=== PATIENT | female | born 1940 | race Caucasian/White ===

== ENCOUNTER 2021-08-18 07:40 | Outpatient (RCR) | payer MEDICARE, SELFPAY ==
[2021-08-22 08:13] LABS: Albumin 3.77 g/dL (3.75-5.01); Alpha 1 Globulin 0.26 g/dL (0.19-0.46); Alpha 2 Globulin 0.69 g/dL (0.48-1.05); Immunofixation IFE Done; Immunoglobulin A 87 mg/dL (68-408); Immunoglobulin G 2241 mg/dL (768-1632); Immunoglobulin M 36 mg/dL (35-263); Kappa Qnt Free Light Chains 17.72 mg/L (3.30-19.40); Kappa/Lambda Light Chain Ratio 0.16 (0.26-1.65); Lambda Qnt Free Light Chains 112.32 mg/L (5.71-26.30); Total Protein, Serum 7.3 g/dL (6.3-8.2)
--- NOTE | 2021-08-26 15:35 | ONC.NURNOTE ---
Reviewed with Dr. Lozada and at this time patient to have PET scan in September. Lambda FLC slightly elevated from prior and IgG lower with no signs of kidney damage. Patient informed
== END 2021-09-04 23:59 | disposition home or self-care (01) ==
LOC: CCIC 07:40
PROVIDERS: PCP Physician Assistant Medical; Visit Provider Internal Medicine Hematology & Oncology
DX: C90.00 Multiple myeloma not having achieved remission (principal)
CPT/HCPCS: 36415; 80048; 82784; 83520; 84155; 84165; 85025; 86334

== ENCOUNTER 2021-09-02 14:48 | Outpatient (CLI) | payer MEDICARE, SELFPAY ==
[2021-09-05 06:47] LABS: Kappa-Lambda Qt FLC W/ Ratio 0.17 (0.26-1.65); Lambda Qnt Free Light Chains 117.12 mg/L (5.71-26.30)
== END 2021-09-02 14:49 | disposition home or self-care (01) ==
LOC: LKVLAB 14:48
PROVIDERS: PCP Physician Assistant Medical; Visit Provider Internal Medicine Hematology & Oncology
DX: C90.00 Multiple myeloma not having achieved remission (principal)
CPT/HCPCS: 36415; 83520

== ENCOUNTER 2021-09-02 23:27 | Outpatient (REF) | payer MEDICARE, SELFPAY ==
[2021-09-04 13:23] LABS: Angiotensin Converting Enzyme 26 U/L (16-85)
== END 2021-09-02 23:28 | disposition home or self-care (01) ==
LOC: NPINS 23:27
PROVIDERS: PCP Physician Assistant Medical
DX: C90.00 Multiple myeloma not having achieved remission (principal)
CPT/HCPCS: 82164; 86480

== ENCOUNTER 2021-10-06 14:04 | Outpatient (CLI) | payer MEDICARE, SELFPAY ==
--- NOTE | 2021-10-06 14:00 | CRLHL7_ITS ---
For Patients: As a result of the Century Cures Act, medical imaging exams and procedure reports are released immediately into your electronic medical record. You may view this report before your referring provider. If you have questions, please contact your health care provider. INDICATION: Multiple myeloma TECHNIQUE: Following IV injection of FDG with uptake of 62 minutes, noncontrast CT scan followed by a PET scan were acquired along the length of body from the head to the upper thighs. Noncontrast CT was used for anatomic localization and photon attenuation correction of the PET-CT scan. - Blood glucose level: 117. - FDG dose (mCi): 11.54. COMPARISON: 03/10/2021 PET-CT. FINDINGS: Head/Neck: No abnormal tracer uptake. - Chest: No abnormal tracer uptake. - Background liver parenchyma with SUV mean of 2.8. No abnormal tracer uptake. Resolution of ileocecal valve uptake. - Musculoskeletal: No tracer avid bone lesion. - CT findings: Mild subpleural reticular fibrotic opacities in both lungs are again noted. No focal lung consolidation, pleural effusion or pneumothorax. Gallbladder is absent. Small hiatal hernia. Atrophic pancreatic parenchyma. Duodenal diverticulum. Atherosclerotic abdominal aorta. Colonic diverticulosis. Bones are demineralized. Degenerative changes in the spine. IMPRESSION : No tracer avid bone lesions. Dictated by Junior Jensen MD @ 10/12/2021 2:47:23 PM (Electronically Signed)
== END 2021-10-06 14:05 | disposition home or self-care (01) ==
LOC: RAD 14:05
PROVIDERS: PCP Physician Assistant Medical; Visit Provider Internal Medicine Medical Oncology
DX: C90.00 Multiple myeloma not having achieved remission (principal)
CPT/HCPCS: 78815; A9552

== ENCOUNTER 2022-03-30 08:30 | Outpatient (RCR) | payer MEDICARE, SELFPAY ==
[2021-11-17 14:24] LABS: Eosinophils Percent Auto 3.6 % (0.0-7.0); Hematocrit 30.4 % (33.0-51.0); Hemoglobin* 10.2 gm/dL (12.0-16.0); Immature Granulocytes Abs Auto 0.69 K/uL (0.00-0.30); Lymphocytes Percent Auto 35.1 % (20-44); Mean Corpuscular HGB Conc 34 gm/dL (32-36); Mean Corpuscular Hemoglobin 33 pg (26-34); Mean Corpuscular Volume 98 fL (80-100); Monocytes Percent Auto 6.4 % (0.0-11.0); Neutrophils Percent Auto 35.8 % (42.0-72.0); Platelet Count* 186 K/uL (140-440); RDW Coefficient of Variation % 12.6 % (11.5-15.5); White Blood Count* 3.62 K/uL (4.50-11.00)
[2021-11-17 14:48] LABS: Alkaline Phosphatase* 101 U/L (40-150); Total Protein* 7.7 g/dL (6.0-8.3)
[2021-11-17 14:49] LABS: Alanine Aminotransferase* 20 U/L (4-35); Blood Urea Nitrogen* 16 mg/dL (7-30); Calcium* 8.8 mg/dL (8.4-10.6); Glucose* 120 mg/dL (60-115)
[2021-11-17 14:52] LABS: Creatinine* 0.8 mg/dL (0.5-1.5); Estimated Glomerular Filt Rate 75 ml/min
[2021-11-17 15:14] LABS: Slide Review Reflex Yes
[2021-11-17 15:15] LABS: Slide Review Acceptable Review (Acceptable)
[2021-11-17 15:27] LABS: Aspartate Amino Transferase* 23 U/L (12-35); Bilirubin Total* 0.6 mg/dL (0.1-1.5); Carbon Dioxide* 28 mmol/L (20-32); Chloride* 106 mmol/L (96-114); Potassium* 3.6 mmol/L (3.6-5.1); Sodium* 140 mmol/L (135-149)
[2021-11-19 20:48] LABS: Kappa Qnt Free Light Chains 19.11 mg/L (3.30-19.40); Kappa-Lambda Qt FLC W/ Ratio 0.17 (0.26-1.65); Lambda Qnt Free Light Chains 114.18 mg/L (5.71-26.30)
[2021-12-22 13:45] LABS: Eosinophils Percent Auto 3.8 % (0.0-7.0); Hematocrit 32.5 % (33.0-51.0); Hemoglobin* 10.8 gm/dL (12.0-16.0); Immature Granulocytes Pct Auto 21.2 %; Mean Corpuscular HGB Conc 33 gm/dL (32-36); Mean Corpuscular Hemoglobin 33 pg (26-34); Mean Corpuscular Volume 100 fL (80-100); Monocytes Percent Auto 5.5 % (0.0-11.0); Neutrophils Percent Auto 38.5 % (42.0-72.0); Platelet Count* 203 K/uL (140-440); RDW Coefficient of Variation % 13.6 % (11.5-15.5); Red Blood Count 3.24 m/uL (4.00-5.20); White Blood Count* 3.64 K/uL (4.50-11.00)
[2021-12-22 13:49] LABS: Slide Review Reflex No
[2021-12-22 13:57] LABS: Chloride* 109 mmol/L (96-114); Sodium* 142 mmol/L (135-149)
[2021-12-22 14:00] LABS: Blood Urea Nitrogen* 16 mg/dL (7-30); Carbon Dioxide* 25 mmol/L (20-32); Creatinine* 0.8 mg/dL (0.5-1.5); Estimated Glomerular Filt Rate 75 ml/min; Glucose* 121 mg/dL (60-115)
[2022-01-20 09:41] LABS: Basophils Percent Auto 0.3 % (0.0-3.0); Eosinophils Percent Auto 2.1 % (0.0-7.0); Hematocrit 30.1 % (33.0-51.0); Hemoglobin* 10.3 gm/dL (12.0-16.0); Immature Granulocytes Pct Auto 20.8 %; Lymphocytes Percent Auto 39.2 % (20-44); Mean Corpuscular HGB Conc 34 gm/dL (32-36); Mean Corpuscular Hemoglobin 33 pg (26-34); Mean Corpuscular Volume 98 fL (80-100); Monocytes Percent Auto 8.7 % (0.0-11.0); Neutrophils Percent Auto 28.9 % (42.0-72.0); Platelet Count* 168 K/uL (140-440); RDW Coefficient of Variation % 12.7 % (11.5-15.5); Red Blood Count 3.08 m/uL (4.00-5.20); White Blood Count* 2.88 K/uL (4.50-11.00)
[2022-01-20 09:44] LABS: Slide Review Reflex Yes
[2022-01-20 09:53] LABS: Chloride* 108 mmol/L (96-114); Potassium* 3.7 mmol/L (3.6-5.1); Sodium* 141 mmol/L (135-149)
[2022-01-20 09:55] LABS: Creatinine* 0.8 mg/dL (0.5-1.5); Estimated Glomerular Filt Rate 75 ml/min
[2022-01-20 09:56] LABS: Blood Urea Nitrogen* 17 mg/dL (7-30); Calcium* 9.1 mg/dL (8.4-10.6); Carbon Dioxide* 25 mmol/L (20-32); Glucose* 105 mg/dL (60-115)
[2022-01-20 10:28] LABS: Slide Review Acceptable Review (Acceptable)
[2022-02-20 09:05] LABS: Eosinophils Percent Auto 1.1 % (0.0-7.0); Hematocrit 33.4 % (33.0-51.0); Lymphocytes Percent Auto 33.8 % (20-44); Mean Corpuscular HGB Conc 33 gm/dL (32-36); Mean Corpuscular Hemoglobin 33 pg (26-34); Mean Corpuscular Volume 100 fL (80-100); Monocytes Percent Auto 6.4 % (0.0-11.0); Neutrophils Percent Auto 58.7 % (42.0-72.0); Platelet Count* 168 K/uL (140-440); RDW Coefficient of Variation % 13.1 % (11.5-15.5); Red Blood Count 3.35 m/uL (4.00-5.20); White Blood Count* 3.58 K/uL (4.50-11.00)
[2022-02-20 09:06] LABS: Slide Review Reflex No
[2022-02-20 09:22] LABS: Chloride* 110 mmol/L (96-114); Potassium* 4.3 mmol/L (3.6-5.1); Sodium* 141 mmol/L (135-149)
[2022-02-20 09:24] LABS: Cholesterol* 161 mg/dL (90-199); Creatinine* 0.8 mg/dL (0.5-1.5); Estimated Glomerular Filt Rate 75 ml/min
[2022-02-20 09:25] LABS: Blood Urea Nitrogen* 14 mg/dL (7-30); Calcium* 8.9 mg/dL (8.4-10.6); Carbon Dioxide* 29 mmol/L (20-32); Glucose* 117 mg/dL (60-115); HDL Cholesterol* 56 mg/dL (>=50); LDL Cholesterol Calculated 87 mg/dL (<100); Triglycerides* 88 mg/dL (40-149)
--- NOTE | 2022-03-06 09:29 | ONC.NURNOTE ---
Patient here for lab redraw of myeloma labs no follow up appts scheduled plan discussed with patient Will have Dr Zaidi review labs next week- next appt pending lab review by Dr Zaidi
[2022-03-08 23:23] LABS: Albumin 3.69 g/dL (3.75-5.01); Alpha 1 Globulin 0.33 g/dL (0.19-0.46); Alpha 2 Globulin 0.77 g/dL (0.48-1.05); Immunofixation IFE Done; Immunoglobulin A 102 mg/dL (68-408); Immunoglobulin G 2618 mg/dL (768-1632); Immunoglobulin M 45 mg/dL (35-263); Kappa Qnt Free Light Chains 23.08 mg/L (3.30-19.40); Kappa/Lambda Light Chain Ratio 0.18 (0.26-1.65); Lambda Qnt Free Light Chains 125.83 mg/L (5.71-26.30); Monoclonal Protein 1.91 g/dL; Total Protein, Serum 7.6 g/dL (6.3-8.2)
--- NOTE | 2022-03-23 13:00 | ONC.NURNOTE ---
patient called for lab results numbers reviewed due for follow up with Dr Zaidi appt set for next week patient does not have a car- patient will work on transportation this week
== END 2022-04-11 23:59 | disposition home or self-care (01) ==
LOC: CCIC 08:30
PROVIDERS: Clinical Nurse Specialist; Nurse Practitioner Family; PCP Physician Assistant Medical; Referring Provider Physician Assistant Medical; Visit Provider Internal Medicine Hematology & Oncology
DX: D47.2 Monoclonal gammopathy (principal)
CPT/HCPCS: 36415; 80048; 80053; 80061; 82784; 83520; 84155; 84165; 85025; 86334; 99212; 99213; 99214; 99443

== ENCOUNTER 2022-04-19 13:39 | Outpatient (CLI) | payer MEDICARE, SELFPAY | END 2022-04-19 13:40 | disposition home or self-care (01) | LOC: NFLDREF 04-21 01:31 | PROVIDERS: PCP Physician Assistant Medical; Referring Provider Physician Assistant Medical; Visit Provider Physician Assistant Medical | DX: C90.00 Multiple myeloma not having achieved remission (principal) | CPT/HCPCS: 80048 ==

== ENCOUNTER 2022-06-19 11:05 | Outpatient (CLI) | payer MEDICARE, SELFPAY | END 2022-06-19 11:06 | disposition home or self-care (01) | PROVIDERS: PCP Physician Assistant Medical; Visit Provider Physician Assistant Medical | DX: Z00.00 Encounter for general adult medical examination without abnormal findings (principal); R73.03 Prediabetes; E78.00 Pure hypercholesterolemia, unspecified; I10 Essential (primary) hypertension; C90.00 Multiple myeloma not having achieved remission; D47.2 Monoclonal gammopathy; Q24.9 Congenital malformation of heart, unspecified; Z13.6 Encounter for screening for cardiovascular disorders | CPT/HCPCS: 80053; 80061; 82784; 83520; 84155; 84165; 85025; 86334 ==

== ENCOUNTER 2022-07-06 07:05 | Outpatient (CLI) | payer MEDICARE, SELFPAY ==
[2022-07-06 07:18] VITALS: BP 132/89; PULSE 71; RESP 20; O2SAT 99
[2022-07-06 07:22] VITALS: BP 126/70; PULSE 74; RESP 20; TEMP 36.7; O2SAT 100; BMI 28.0
--- NOTE | 2022-07-06 08:15 | W.ANESCHARGE ---
Anesthesia Charges Start Date/Time Anesthesia Start Date: 07/06/22 Anesthesia Start Time: 08:10 Stop Date/Time Anesthesia Stop Date: 07/06/22 Anesthesia Stop Time: 08:30 Summary Extremes of Age - Over 70 or under 1: MDA
[2022-07-06 08:25] LABS: Hematocrit 31.6 % (33.0-51.0); Hemoglobin* 10.5 gm/dL (12.0-16.0); Immature Granulocytes Pct Auto 20.5 %; Immature Reticulocyte Fraction 5.5 % (3.0-15.9); Lymphocytes Percent Auto 26.6 % (20-44); Mean Corpuscular HGB Conc 33 gm/dL (32-36); Mean Corpuscular Hemoglobin 33 pg (26-34); Mean Corpuscular Volume 100 fL (80-100); Monocytes Percent Auto 8.8 % (0.0-11.0); Neutrophils Percent Auto 43.1 % (42.0-72.0); Platelet Count* 200 K/uL (140-440); RDW Coefficient of Variation % 13.7 % (11.5-15.5); Red Blood Count 3.16 m/uL (4.00-5.20); Reticulocyte Hemoglobin Equivi 33.5 pg (29.0-35.0); Reticulocyte Percent 1.1 % (0.5-2.0); Reticulocytes Absolute 0.04 # (0.03-0.08)
[2022-07-06 08:31] VITALS: BP 113/68; PULSE 67; RESP 18; O2SAT 99
--- NOTE | 2022-07-06 08:33 | W.ANESCHARGE ---
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
[2022-07-06 08:50] LABS: Albumin* 3.9 g/dL (3.3-5.0); Chloride* 107 mmol/L (96-114)
[2022-07-06 08:51] LABS: Potassium* 3.8 mmol/L (3.6-5.1); Sodium* 140 mmol/L (135-149)
[2022-07-06 08:53] LABS: Aspartate Amino Transferase* 29 U/L (12-35); Bilirubin Total* 0.9 mg/dL (0.1-1.5); Carbon Dioxide* 26 mmol/L (20-32); Est. Creatinine Clearance* 40.38; Estimated Glomerular Filt Rate 57 ml/min; Total Protein* 7.8 g/dL (6.0-8.3)
[2022-07-06 08:54] LABS: Alanine Aminotransferase* 28 U/L (4-35); Alkaline Phosphatase* 91 U/L (40-150); Blood Urea Nitrogen* 27 mg/dL (7-30); Glucose* 106 mg/dL (60-115)
[2022-07-06 08:56] VITALS: BP 119/62; PULSE 72; RESP 18; O2SAT 100
[2022-07-06 08:56] LABS: Slide Review Reflex No
== END 2022-07-06 09:21 | disposition home or self-care (01) ==
LOC: OP CLINIC 07:05
PROVIDERS: Clinical Nurse Specialist; PCP Physician Assistant Medical; Visit Provider Internal Medicine Hematology & Oncology
DX: C90.00 Multiple myeloma not having achieved remission (principal); D47.2 Monoclonal gammopathy
CPT/HCPCS: 01112; 36415; 38222; 80053; 85025; 85045; 88184; 88185; 88237; 88264; 88305; 88311; 88313; 88360; 99100; J1644; J2001; J2704

== ENCOUNTER 2022-07-13 12:24 | Outpatient (CLI) | payer MEDICARE, SELFPAY ==
--- NOTE | 2022-07-13 12:45 | CRLHL7_ITS ---
For Patients: As a result of the 21st Century Cures Act, medical imaging exams and procedure reports are released immediately into your electronic medical record. You may view this report before your referring provider. If you have questions, please contact your health care provider. INDICATION: Multiple myeloma TECHNIQUE: Following IV injection of FDG with uptake of 64 minutes, noncontrast CT scan followed by a PET scan were acquired along the length of body from the head to the upper thighs. Noncontrast CT was used for anatomic localization and photon attenuation correction of the PET-CT scan. - Blood glucose level: 109. - FDG dose (mCi): 12.22. COMPARISON: PET-CT dated 10/06/2021. FINDINGS: Head/Neck: No abnormal radiotracer uptake. - Chest: Background mediastinal blood pool with SUV mean of 2.9. No abnormal radiotracer uptake. - Background liver parenchyma with SUV mean of 3.2. No abnormal radiotracer uptake. - Musculoskeletal: No abnormal radiotracer uptake. Increased linear radiotracer uptake within the right iliac wing (image 245) with SUV max measuring 3.2. Possible underline biopsy tract. - CT findings: No acute incidental finding on non contrast, nondiagnostic CT IMPRESSION : 1. No definite evidence of metabolically active disease. 2. Mild to moderate linear oriented increased radiotracer uptake within the right iliac wing. Correlate with interval bone marrow biopsy. Dictated by Chevy Elizabeth MD @ 07/25/2022 4:41:28 PM (Electronically Signed)
== END 2022-07-13 12:25 | disposition home or self-care (01) ==
LOC: RAD 12:25
PROVIDERS: PCP Physician Assistant Medical; Visit Provider Internal Medicine Hematology & Oncology
DX: C90.00 Multiple myeloma not having achieved remission (principal)
CPT/HCPCS: 78816; A9552

== ENCOUNTER 2022-07-27 14:59 | Outpatient (RCR) | payer MEDICARE, SELFPAY ==
--- NOTE | 2022-04-14 13:50 | ONC.NURNOTE ---
Addendum entered by Yana Willis RN 04/14/22 14:15: Patient called back and was concerned about having to get a ride to [place] every month so let patient know she could have those labs done at her [place] clinic and just get her MM labs every 3 months at the hospital Original Note: Patient called and message left for her to come in for monthly blood draws instead of every [address] Zaidi.
--- NOTE | 2022-05-23 10:02 | ONC.NURNOTE ---
Consuelo called about her next lab draw due She would like to go to [place] orders will be placed due to current illness- weakness/fatigue/low appetite reports to being in bed X 4 days- today she is seeing improvement drinking fluids well recommended PCP follow up for this reason it was recommended that she wait on her blood draw until she is recovered- 1-2 weeks
[2022-07-01 22:03] LABS: Prothrombin Time 12.8 sec (12.0-15.5); dRVVT Screen 27 sec (33-44)
--- NOTE | 2022-07-12 10:34 | PC.NURSE ---
Addendum entered by Lori Pardo RN 07/12/22 16:16: Called PET scan scheduling this afternoon and confirmed that pt was able to get transportation for PET scan tomorrow so the test will be done. Pt will see Dr. Andre on 07/27/2022 as scheduled. Original Note: Received a call from Dhara at [facility] with an update re: pt's PET scan scheduling. Dhara was able to get a time for tomorrow, 07/13/2022 and when she called pt to discuss, Consuelo shared that she wouldn't be able to get a ride. The next PET scan opening is 07/27/2022 and pt is currently scheduled to see Dr. Andre on that same day. PET scans aren't usually read same day so this may be an issue. 's next opening is several weeks later. RN called and LM with Consuelo with this information and invited pt to call back with any ride updates.
== END 2022-12-26 23:59 | disposition home or self-care (01) ==
LOC: CCIC 14:59
PROVIDERS: Internal Medicine Hematology & Oncology; PCP Physician Assistant Medical; Referring Provider Physician Assistant Medical; Visit Provider Internal Medicine Hematology & Oncology
DX: C90.00 Multiple myeloma not having achieved remission (principal); R78.89 Finding of other specified substances, not normally found in blood
CPT/HCPCS: 36415; 85610; 85613; 85730; 99212; 99213; 99214

== ENCOUNTER 2022-10-26 11:21 | Outpatient (CLI) | payer MEDICARE, SELFPAY | END 2022-10-26 11:22 | disposition home or self-care (01) | PROVIDERS: PCP Physician Assistant Medical; Visit Provider Physician Assistant Medical | DX: Z01.818 Encounter for other preprocedural examination (principal); E78.00 Pure hypercholesterolemia, unspecified; I10 Essential (primary) hypertension; R73.03 Prediabetes; Z79.899 Other long term (current) drug therapy | CPT/HCPCS: 82306; 82607; 84443 ==

== ENCOUNTER 2022-12-14 11:36 | Outpatient (CLI) | payer MEDICARE, SELFPAY | END 2022-12-14 11:37 | disposition home or self-care (01) | LOC: NFLDREF 12-18 09:51 | PROVIDERS: PCP Physician Assistant Medical; Referring Provider Physician Assistant Medical; Visit Provider Internal Medicine Hematology & Oncology | DX: C90.00 Multiple myeloma not having achieved remission (principal) | CPT/HCPCS: 80048; 82784; 83520; 84155; 84165; 86334 ==

== ENCOUNTER 2022-12-14 12:42 | Outpatient (CLI) | payer MEDICARE, SELFPAY ==
--- NOTE | 2022-12-14 13:00 | CRLHL7_ITS ---
For Patients: As a result of the Century Cures Act, medical imaging exams and procedure reports are released immediately into your electronic medical record. You may view this report before your referring provider. If you have questions, please contact your health care provider. DXA BONE MINERAL DENSITY STUDY Reason for exam: Encounter for screening for osteoporosis. Current height (in): 65.0. Weight (lb): 150.0. Menopause age: 54. Ethnicity: White. 1. Have you had a previous hip or vertebral fracture? No. 2. Have you had any fractures during your adult life which did not result from significant trauma (e.g., auto accident)? No. 3. Did either of your parents have a hip fracture? No. 4. Do you smoke? No. 5. Have you ever taken Glucocorticoids? No. 6. Do you have rheumatoid arthritis? No. 7. Do you have secondary osteoporosis? No. 8. Do you drink 3 or more alcoholic drinks per day? No. 9. Are you being treated for osteoporosis? No. 10. Have you ever taken any of the following medications: Actonel, Evista, Fosamax, Miacalcin, Reclast, Boniva, Forteo, HRT (i.e. estrogen/hormone therapy), Protelos, Prolia, Vitamin D, Calcium, other ??? please specify. ANSWER: Yes, vitamin D, calcium. 11. Do you have any of the following medical conditions: Anorexia or bulimia, asthma or emphysema, end stage renal disease, hyperparathyroidism, any seizure disorders, cancer, inflammatory bowel diseases, hysterectomy, other ??? please specify. ANSWER: Yes, Cancer- multiple myeloma. 12. What was your maximum height (inches)? 65. 13. Do you perform weight bearing exercise regularly? No. 14. Do you regularly consume dairy products? No. 15. Do you drink caffeinated beverages? Yes. 16. At what age did your period start? 14. 17. Are you premenopausal? No. 18. How many full term pregnancies have you had? 2. 19. Have you ever missed your period for more than 6 months in a row (not including or menopause)? No. TECHNIQUE: Bone mineral density study was performed using the [employer]. FINDINGS: The results of the study expressed as bone mineral density (BMD) are as follows: Lumbar spine L2 to L4: BMD: 1.013 g/cm2. T-score: -0.6. Z-score: 2.2. Neck Left: BMD: 0.677 g/cm2. T-score: -1.5. Z-score: 0.8. Right: BMD: 0.636 g/cm2. T-score: -1.9. Z-score: 0.4. Total Left: BMD: 0.835 g/cm2. T-score: -0.9. Z-score: 1.2. Right: BMD: 0.760 g/cm2. T-score: -1.5. Z-score: 0.6. IMPRESSION: Osteopenia. *Comparison exams done prior to 07/2019 were performed on different unit, [employer]. FRAX 10-year Fracture Risk Major Osteoporotic Fracture: 16 percent Hip Fracture: 4.5 percent Reported Risk Factors: [place] () Neck BMD=0.636, BMI=25.0 Junior Jacome M.D. Diagnostic Radiologist [email or web address] DSM/[place]ina PT/Dictated by: Junior Jacome MD @ 12/15/2022 12:34:00 PM (Electronically Signed)
== END 2022-12-14 12:43 | disposition home or self-care (01) ==
PROVIDERS: PCP Physician Assistant Medical; Visit Provider Physician Assistant Medical
DX: Z13.820 Encounter for screening for osteoporosis (principal); M85.89 Other specified disorders of bone density and structure, multiple sites; Z78.0 Asymptomatic menopausal state
CPT/HCPCS: 77080

== ENCOUNTER 2023-01-08 14:05 | Outpatient (RCR) | payer MEDICARE, SELFPAY ==
[2023-01-08 15:11] LABS: Eosinophils Percent Auto 1.9 % (0.0-7.0); Hematocrit 33.7 % (33.0-51.0); Hemoglobin* 11.1 gm/dL (12.0-16.0); Immature Granulocytes Pct Auto 12.8 %; Lymphocytes Percent Auto 31.7 % (20-44); Mean Corpuscular HGB Conc 33 gm/dL (32-36); Mean Corpuscular Hemoglobin 32 pg (26-34); Mean Corpuscular Volume 98 fL (80-100); Monocytes Percent Auto 8.5 % (0.0-11.0); Neutrophils Percent Auto 45.1 % (42.0-72.0); Platelet Count* 202 K/uL (140-440); RDW Coefficient of Variation % 13.1 % (11.5-15.5); Red Blood Count 3.45 m/uL (4.00-5.20); White Blood Count* 3.75 K/uL (4.50-11.00)
[2023-01-08 16:23] LABS: Slide Review Acceptable Review (Acceptable); Slide Review Reflex Yes
== END 2023-07-07 23:59 | disposition home or self-care (01) ==
LOC: CCIC 14:05
PROVIDERS: PCP Physician Assistant Medical; Referring Provider Physician Assistant Medical; Visit Provider Internal Medicine Hematology & Oncology
DX: C90.00 Multiple myeloma not having achieved remission (principal); D70.9 Neutropenia, unspecified
CPT/HCPCS: 36415; 85025; 99212; 99213; 99214

== ENCOUNTER 2023-07-09 11:30 | Outpatient (CLI) | payer MEDICARE, SELFPAY | END 2023-07-09 11:31 | disposition home or self-care (01) | LOC: NFLDREF 07-26 11:44 | PROVIDERS: PCP Physician Assistant Medical; Referring Provider Physician Assistant Medical; Visit Provider Internal Medicine Hematology & Oncology | DX: C90.00 Multiple myeloma not having achieved remission (principal) | CPT/HCPCS: 80053; 80061; 82784; 83520; 83615; 84155; 84165; 86334 ==

== ENCOUNTER 2023-11-12 10:00 | Outpatient (RCR) | payer MEDICARE, SELFPAY ==
[2023-11-02 15:21] LABS: Basophils Percent Auto 0.4 % (0.0-3.0); Eosinophils Percent Auto 1.9 % (0.0-7.0); Hematocrit 27.2 % (33.0-51.0); Hemoglobin* 8.7 gm/dL (12.0-16.0); Immature Granulocytes Pct Auto 13.7 %; Mean Corpuscular HGB Conc 32 gm/dL (32-36); Mean Corpuscular Hemoglobin 34 pg (26-34); Mean Corpuscular Volume 107 fL (80-100); Monocytes Percent Auto 6.7 % (0.0-11.0); Neutrophils Percent Auto 40.3 % (42.0-72.0); Platelet Count* 156 K/uL (140-440); RDW Coefficient of Variation % 16.2 % (11.5-15.5); Red Blood Count 2.55 m/uL (4.00-5.20)
[2023-11-02 15:31] LABS: Slide Review Reflex No
[2023-11-02 15:34] LABS: Albumin* 3.8 g/dL (3.3-5.0); Chloride* 111 mmol/L (96-114); Potassium* 3.5 mmol/L (3.6-5.1); Sodium* 140 mmol/L (135-149)
[2023-11-02 15:37] LABS: Alanine Aminotransferase* 17 U/L (4-35); Alkaline Phosphatase* 81 U/L (40-150); Anion Gap 6 mEq/L (7-15); Aspartate Amino Transferase* 28 U/L (12-35); Bilirubin Total* 1.4 mg/dL (0.1-1.5); Blood Urea Nitrogen* 14 mg/dL (7-30); Calcium* 9.1 mg/dL (8.4-10.6); Carbon Dioxide* 23 mmol/L (20-32); Creatinine* 0.8 mg/dL (0.5-1.5); Estimated Glomerular Filt Rate 74 ml/min; Glucose* 108 mg/dL (60-115); Lactate Dehydrogenase* 227 U/L (120-246); Total Protein* 7.5 g/dL (6.0-8.3)
[2023-11-05 19:34] LABS: Albumin 3.57 g/dL (3.75-5.01); Alpha 1 Globulin 0.28 g/dL (0.19-0.46); Alpha 2 Globulin 0.65 g/dL (0.48-1.05); Immunofixation IFE Done; Immunoglobulin A 104 mg/dL (68-408); Immunoglobulin G 2145 mg/dL (768-1632); Immunoglobulin M 52 mg/dL (35-263); Kappa Qnt Free Light Chains 19.87 mg/L (3.30-19.40); Kappa/Lambda Light Chain Ratio 0.17 (0.26-1.65); Lambda Qnt Free Light Chains 116.25 mg/L (5.71-26.30); Monoclonal Protein 1.68 g/dL (<=0.00); Total Protein, Serum 7.1 g/dL (6.3-8.2)
[2023-11-12 11:00] LABS: Basophils Percent Auto 0.4 % (0.0-3.0); Eosinophils Percent Auto 0.8 % (0.0-7.0); Hematocrit 27.7 % (33.0-51.0); Hemoglobin* 8.8 gm/dL (12.0-16.0); Immature Granulocytes Pct Auto 16.7 %; Lymphocytes Percent Auto 28.3 % (20-44); Mean Corpuscular HGB Conc 32 gm/dL (32-36); Mean Corpuscular Hemoglobin 34 pg (26-34); Mean Corpuscular Volume 108 fL (80-100); Neutrophils Percent Auto 47.8 % (42.0-72.0); Platelet Count* 151 K/uL (140-440); RDW Coefficient of Variation % 15.8 % (11.5-15.5); Red Blood Count 2.57 m/uL (4.00-5.20); White Blood Count* 2.51 K/uL (4.50-11.00)
[2023-11-12 11:01] LABS: Slide Review Reflex No
[2023-11-12 11:21] LABS: Iron* 94 ug/dL (37-170)
[2023-11-12 11:30] LABS: Percent Iron Saturation 43 % (20-50); Total Iron Binding Capacity 219 ug/dL (265-497)
[2023-11-12 11:46] LABS: Ferritin* 94.7 ng/mL (11.1-264.0)
[2023-11-12 12:00] LABS: Vitamin B12* 659 pg/mL (243-894)
[2023-11-13 14:44] LABS: Folate, Serum 15.6 ng/mL (>=5.9)
--- NOTE | 2023-11-30 14:57 | PC.NURSE ---
Addendum entered by Liz Fontenot RN 12/04/23 15:51: Per Dr. Andre, pt needs to have her hemoglobin rechecked. Dr. Andre did not order the oral Iron for pt and doesn't think she needs it so can not advise her on the following concerns. Pt called back and typewriter aligner discussed with pt Dr. Andre recommendation. Pt will call [facility] for lab appt to recheck hemoglobin. Pt instructed to call [facility] when lab is drawn so we can discuss results with Dr. Andre. Pt verbalized understanding of plan of care. Original Note: Pt called today to report that the iron gummies she is taking are very unpleasant. She would like to review other oral iron options and maybe even something stronger whether pill or IV. Pt is receiving home care services and the care provider in her home encouraged her to call Dr. Andre to discuss. MD not present in clinic today. Will have MD review next week and follow-up with Ana. Supportive listening provided.
== END 2024-01-19 23:59 | disposition home or self-care (01) ==
LOC: CCIC 10:00
PROVIDERS: PCP Physician Assistant Medical; Visit Provider Internal Medicine Hematology & Oncology
DX: C90.00 Multiple myeloma not having achieved remission (principal); D47.2 Monoclonal gammopathy; Z86.79 Personal history of other diseases of the circulatory system; D70.8 Other neutropenia; R23.1 Pallor
CPT/HCPCS: 36415; 80053; 82607; 82728; 82746; 82784; 83520; 83540; 83550; 83615; 84155; 84165; 85025; 86334; 99214; 99441; 99442; G0463

== ENCOUNTER 2024-01-10 10:27 | Outpatient (CLI) | payer MEDICARE, SELFPAY ==
--- OUTSIDE RECORDS SUMMARY | 2024-01-10 10:32 | XMS_ITS | Referral Summary ---
Author Organization [place] Address Replaced by [facility] [place] [address] Care Team Providers Care Wax Pattern Repairer Name Role Phone Clinic, [facility] Primary Care Provider Arvin Fernandez PA-C Unavailable [phone] Encounters Date Type Department Care Team Description 10/30/[address] [address] Ebony Patel DO Home Care/Hospice 10/24/2023 Travel 10/24/2023 9:30 AM CDT Transitional Care Unit Visit [address] [address] Carlee Lemons PA-C Fall, subsequent encounter (Primary Dx); Type 2 diabetes mellitus without complication, without long-term current use of insulin (H); Essential hypertension 10/17/2023 Travel 10/17/2023 10:00 AM CDT Discharge Summary [facility] [address] [address] Carlee Lemons PA-C Discharge Summary [facility] 10/12/2023 9:00 AM CDT Transitional Care Unit Visit [address] [phone] Ebony Patel DO Fall, subsequent encounter (Primary Dx); Intraventricular hemorrhage (H); Physical deconditioning; Multiple myeloma, remission status unspecified (H); Anemia, unspecified type; Chronic kidney disease, stage 3a (H); Essential hypertension; Type 2 diabetes mellitus without complication, without long-term current use of insulin (H); Cognitive impairment; Post herpetic neuralgia 10/11/2023 Travel 10/11/2023 11:30 AM CDT Office Visit [facility] [place] [phone] [facility] [address] [place] [address] Arvin Fernandez PA-C IVH (intraventricular hemorrhage) (H) (Primary Dx) from Last 3 Months Allergies Active Allergy Reactions Criticality Noted Date Comments Codeine Other (See Comments) 10/07/2017 Hypotension Medications atorvastatin (LIPITOR) 40 MG tablet Take 40 mg by mouth every evening. Active losartan (COZAAR) 100 MG tablet Take 100 mg by mouth daily Active metoprolol succinate ER (TOPROL XL) 50 MG 24 hr tablet Take 50 mg by mouth daily Active vitamin B-2 (RIBOFLAVIN) 100 MG TABS tablet Take 25 mg by mouth daily Active Elemental iron 65 mg Vitamin C 125 mg (VITRON C) 65-125 MG TABS tablet Take 1 tablet by mouth daily Active multivitamin, therapeutic (THERA-VIT) TABS tablet Take 1 tablet by mouth daily Active acetaminophen (TYLENOL) 325 MG tabletIndicatio ns:ADRIAN (acute kidney injury) (H) Take 2 tablets (650 mg) by mouth every 4 hours as needed for mild pain or other (and adjunct with moderate or severe pain or per patient request) 4 Active ondansetron (ZOFRAN ODT) 4 MG ODT tabIndications: ADRIAN (acute kidney injury) (H) Take 1 tablet (4 mg) by mouth every 6 hours as needed for nausea or vomiting 4 Active senna-docusate (SENOKOT-S/WANDY COLACE) 8.6-50 MG tabletIndicatio ns:ADRIAN (acute kidney injury) (H) Take 1 tablet by mouth 2 times daily as needed for constipation 4 Active SUMAtriptan (IMITREX) 50 MG tabletIndicatio ns:ADRIAN (acute kidney injury) (H) Take 1 tablet (50 mg) by mouth 2 times daily as needed for migraine 4 Active meclizine (ANTIVERT) 25 MG tabletIndicatio ns:Vertigo Take 1 tablet (25 mg) by mouth 3 times daily as needed for dizziness 4 Active traZODone (DESYREL) 50 MG tabletIndicatio ns:Insomnia, unspecified type Take 1 tablet (50 mg) by mouth at bedtime 4 Active Lidocaine (LIDOCARE) 4 % PatchIndication s:Post herpetic neuralgia Place 2 patches over 12 hours onto the skin every 24 hours. To prevent lidocaine toxicity, patient should be patch free for 12 hrs daily. 4 Active potassium chloride (KLOR-CON) 20 MEQ packet Take 40 mEq by mouth daily. Active Active Problems Problem Noted Date Diagnosed Date Cognitive impairment 10/11/2023 Type 2 diabetes mellitus wit hout complication, without long-term current use of insulin 10/11/2023 Anemia, unspecified type 10/11/2023 Chronic kidney disease, stage 3a 10/11/2023 Essential hypertension 10/11/2023 Vertigo 09/21/2023 ADRIAN (acute kidney injury) 09/07/2023 Immunizations Name Administration Dates Next Due COVID-19 Monovalent 18+ (Moderna) 05/01/2020, Influenza Vaccine 65+ (Fluzone HD) 11/01,11/09/2021,11/10/2020,2019 Pneumo Conj 13-V (2010&after) 03/02/2016 Pneumococcal 23 valent 10/16/2017 TDAP (Adacel,Boostrix) 09/12/2019 Zoster recombinant adjuvante d (SHINGRIX) 06/12/2018,10/16/2017 Zoster vaccine, live 05/18/2011 Social History Tobacco Use Types Packs/Day Years Used Date Smoking Tobacco: Never Smokeless Tobacco: Never Tobacco Cessation:Counseling Given: Not Answered Alcohol Use Standard Drinks/Week Comments No 0 (1 standard drink = 0.6 oz pur e alcohol) PHQ-2 Answer Date Recorded PHQ-2 Score 0 10/11/2023 Adolescent Education Answer Date Record ed Getting School Help Needed Not on file 09/06 Comments No Sex and Gender Information Value Date Recorded Sex Assigned at Not on file Legal Sex Female 8:48 AM CDT Gender Identity Not on file Sexual Orientation Not on file Last Filed Vital Signs Vital Sign Reading Time Taken Comments Blood Pressure 107/80 10/24/2023 7:42 AM CDT Pulse 73 10/24/2023 7:42 AM CDT Temperature 36.3 C (97.3 F) 10/24/2023 7:42 AM CDT Respiratory Rate 18 10/24/2023 7:42 AM CDT Oxygen Saturation 97% 10/24/2023 7:42 AM CDT Inhaled Oxygen Concentration - - Weight 67.8 kg (149 lb 6.4 oz) 10/24/2023 7:42 A M CDT Height 165.1 cm (5' 5) 10/24/2023 7:42 AM CDT Body Mass Index 24.86 10/24/2023 7:42 AM CDT Plan of Treatment Not on file Procedures Procedure Name Priority Date/Time Associated Diagnosis Comments HEMOGLOBIN A1C Routine 09/26/2023 5:00 AM CDT Repeated falls BASIC METABOLIC PANEL Routine 09/24/2023 5:53 AM CDT ROUTINE UA WITH MICROSCOPIC STAT 09/20/2023 7:29 PM CDT CBC WITH PLATELETS AND DIFFERENTIAL STAT 09/20/2023 3:56 PM CDT LIPID PANEL (EXTERNAL RESULT) Routine 07/09/2023 11:30 AM CDT from Last 3 Months or Most Recently Relevant to Health Maintenance Results * (ABNORMAL) Hemoglobin A1c (09/26/2023 5:00 AM CDT) Hemoglobin A1C 5.7(H) <5.7 % 09/26/2023 12:20 PM CDT [facility] Comment: Normal <5.7% Prediabetes 5.7-6.4% Diabetes 6.5% or higher Note: Adopted from ADA consensus guidelines. Blood STRUCTURE OF LEFT UPPER LIMB / Unknown Venipuncture / Unknown 09/26/2023 5:00 AM CDT 09/26/2023 8:06 AM CDT Carlee Lemons PA-C LAB - BLOOD ORDERABLES F inal Result [facility] [address] [facility] [address] [facility], [address] [place] [address], [facility] * (ABNORMAL) Basic metabolic panel (09/24/2023 5:53 AM CDT) Sodium 141 135 - 145 mmol/L 09/24/2023 6:37 AM CDT [facility] Potassium 4.1 3.4 - 5.3 mmol/L 09/24/2023 6:37 AM CDT [facility] Chloride 106 98 - 107 mmol/L 09/24/2023 6:37 AM CDT [facility] Carbon Dioxide (CO2) 22 22 - 29 mmol/L 09/24/2023 6:37 AM CDT [facility] Anion Gap 13 7 - 15 mmol/L 09/24/2023 6:37 AM CDT [facility] Urea Nitrogen 13.3 8.0 - 23.0 mg/dL 09/24/2023 6:37 AM CDT [facility] Creatinine 0.86 0.51 - 0.95 mg/dL 09/24/2023 6:37 AM CDT [facility] GFR Estimate 67 >60 mL/min/1.7 3m2 09/24/2023 6:37 AM CDT [facility] Comment:eGFR calculated us2020 CKD-EPI equation. Calcium 8.8 8.8 - 10.4 mg/dL 09/24/2023 6:37 AM CDT [facility] Comment:Reference intervals for this test were updated on 08/21/2023 to reflect our healthy population more accurately. There may be differences in the flagging of prior results with similar values performed with this method. Those prior results can be interpreted in the context of the updated reference intervals. Glucose 112(H) 70 - 99 mg/dL 09/24/2023 6:37 AM CDT [facility] Blood STRUCTURE OF LEFT HAND / Unknown Venipuncture / Unknown 09/24/2023 5:53 AM CDT 09/24/2023 6:11 AM CDT Lawrence Olivares APRN LIGHTNING ROD INSTALLER LAB - BLOOD ORDERABLE S Final Result LABORATORY [facility] [address] [facility] Lab (1st floor, no room number) [place] [address], [facility] * (ABNORMAL) UA with Microscopic (09/20/2023 7:29 PM CDT) Color Urine Light Yellow Colorless, Straw, Light Yellow, Yellow 09/20/2023 8:02 PM CDT LABORATORY Appearance Urine Clear Clear 09/20/19 24 8:02 PM CDT LABORATORY Glucose Urine Negative Negative mg/dL 09/20/2023 8:02 PM CDT LABORATORY Bilirubin Urine Negative Negative 8:02 PM CDT LABORATORY Ketones Urine Trace(A) Negative mg/dL 09/20/2023 8:02 PM CDT LABORATORY Specific [place] Urine 1.012 1.003 - 1.035 09/20/2023 8:02 PM CDT LABORATORY Blood Urine Negative Negative 09/20/2023 8:02 PM CDT LABORATORY pH Urine 6.5 5.0 - 7.0 09/20/2023 8:02 PM CDT LABORATORY Protein Albumin Urine Negative Negative mg/dL 09/20/2023 8:02 PM CDT LABORATORY Urobilinogen Urine Normal Normal, 2.0 mg/dL 09/20/2023 8:02 PM CDT LABORATORY Nitrite Urine Negative Negative 09/20/2023 8:02 PM CDT LABORATORY Leukocyte Esterase Urine Negative Negative 09/20/2023 8:02 PM CDT LABORATORY Bacteria Urine Few(A) None Seen /HPF 09/20/2023 8:02 PM CDT [facility]ORATORY Comment:Urine microscopic re viewed. RBC Urine 1 <=2 /HPF 09/20/2023 8:02 PM CDT LABORATORY WBC Urine 2 <=5 /HPF 09/20/2023 8:02 PM CDT LABORATORY Hyaline Casts Urine 1 <=2 /LPF 09/20/2023 8:02 PM CDT LABORATORY Urine URINE SPECIMEN FROM URINARY CONDUIT / Unknown Non-blood Collection / Unknown 09/20/2023 7:29 PM CDT 09/20/2023 7:32 PM CDT us Hernandez Belcher MD LAB - URINE ORDERABLES F inal Result [facility] [address] Lab (1st floor, no room number) [place] [address] * (ABNORMAL) CBC with platelets and differential (09/20/2023 3:56 PM CDT) WBC Count 6.9 4.0 - 11.0 10e3/uL 09/20/2023 5:48 PM CDT [facility] RBC Count 2.86(L) 3.80 - 5.20 10e6/uL 09/20/2023 5:48 PM CDT [facility] Hemoglobin 9.5(L) 11.7 - 15.7 g/dL 09/20/2023 5:48 PM CDT [facility] Hematocrit 28.3(L) 35.0 - 47.0 % 09/20/2023 5:48 PM CDT [facility] MCV 99 78 - 100 fL 09/20/2023 5:48 PM CDT [facility] MCH 33.2(H) 26.5 - 33.0 pg 09/20/2023 5:48 PM CDT [facility] MCHC 33.6 31.5 - 36.5 g/dL 09/20/2023 5:48 PM CDT [facility] RDW 14.3 10.0 - 15.0 % 09/20/2023 5:48 PM CDT [facility] Platelet Count 372 150 - 450 10e3/uL 09/20/2023 5:48 PM CDT [facility] NRBCs per 100 WBC 0 <1 /100 09/20/2023 5:48 PM CDT [facility] Absolute NRBCs 0.0 10e3/uL 09/20/2023 5:48 PM CDT [facility] Blood BLOOD SPECIMEN / Unknown Venipuncture / Unknown 09/20/2023 3:56 PM CDT 09/20/2023 3:59 PM CDT us Hernandez Belcher MD LAB - BLOOD ORDERABLES F inal Result [facility] [address] Lab (1st floor, no room number) [place] [address], [facility] * Lipid Panel (External Result) (07/09/2023 11:30 AM CDT) Cholesterol (External) 151 90 - 199 mg/dL [facility] Triglycerides (External) 81 40 - 149 mg/dL [facility] HDL Cholesterol (External) 59 >=50 mg/dL [facility] LDL Cholesterol Calculated (External) 76 <100 mg/dL [facility] Blood 07/09/2023 11:3 0 AM CDT Narrative [facility] - 07/09/2023 11:30 AM CDT [facility] - External Lab Results us Provider Outside LAB - HIM EXTERNAL RESULT Final Result Performing Organization Address City/State/ZIP Nm de Phone Number [facility] [address] [place] [address], [facility] [phone] from Last 3 Months or Most Recently Relevant to Health Maintenance Insurance NONE (Work) [id number] [place] [id number] [employer] MEDICARE UCARE MEDICARE Advance Directives For more information, please contact: [phone] * Full Code (Latest Code Status on File) Date Activated Date Inactivated Comments 09/24/2023 12:56 PM Question Answer Comments Code status determined by: Discussion with patie nt/ legal decision maker * Full Code Date Activated Date Inactivated Comments 09/21/2023 12:37 AM 09/24/2023 12:56 PM All basic and advanced life-sustaining interventions are performed as appropriate Question Answer Comments Code status determined by: Discussion with patie nt/ legal decision maker * Full Code Date Activated Date Inactivated Comments 09/07/2023 7:17 PM 09/11/2023 4:21 PM All basic and advanced life-sustaining interventions are performed as appropriate Question Answer Comments Code status determined by: Discussion with patie nt/ legal decision maker Care Teams Wax Pattern Repairer Relationship Specialty Start Date End Date [facility] [address] [place] [address] PCP - General 09/07/23 Arvin Fernandez PA-C [id number] [place] [address] Assigned Neuroscience Provider 10/29/23
--- OUTSIDE RECORDS SUMMARY | 2024-01-10 10:32 | XMS_ITS | Clinical Summary ---
Author Organization [place] Address [address] [place] [address] Care Team Providers Care House Mover Supervisor Name Role Phone [facility], [facility] Primary Care Provider Arvin Fernandez PA-C Unavailable [phone] Allergies Active Allergy Reactions Criticality Noted Date [...] Vertigo 09/21/2023 ADRIAN (acute kidney injury) 09/07/2023 Encounters Date Type Department Care Team Description 10/30/[address] [address] Ebony Patel, DO Home Care/Hospice 10/24/2023 9:30 AM CDT Transitional Care Unit Visit [address] [address] Carlee Lemons PA-C Fall, subsequent encounter (Primary Dx); Type 2 diabetes mellitus without complication, without long-term current use of insulin (H); Essential hypertension 10/24/2023 Travel 10/17/2023 10:00 AM CDT Discharge Summary Longterm [address] [address] Carlee Lemons PA-C Discharge Summary Longterm 10/17/2023 Travel 10/12/2023 9:00 AM CDT Transitional Care Unit Visit [facility] [address] [place] [address] Ebony Patel, Fall, subsequent encounter (Primary Dx); Intraventricular hemorrhage (H); Physical deconditioning; Multiple myeloma, remission status unspecified (H); Anemia, unspecified type; Chronic kidney disease, stage 3a (H); Essential hypertension; Type 2 diabetes mellitus without complication, without long-term current use of insulin (H); Cognitive impairment; Post herpetic neuralgia 10/11/2023 11:30 AM CDT Office Visit [facility] [address] [place] [phone] Arvin Fernandez PA-C IVH (intraventricular hemorrhage) (H) (Primary Dx) 10/11/2023 Travel from Last 3 Months Immunizations Name Administration Dates Next Due COVID-19 [...] 10/24/2023 7:42 AM CDT Plan of Treatment Health Maintenance Due Date Last Done Comments ADVANCE CARE PLANNING 1940 ANNUAL REVIEW OF HM ORDERS 1940 DEXA 1940 DIABETIC FOOT EXAM 1942 EYE EXAM 1940 MICROALBUMIN 1942 FALL RISK ASSESSMENT 06/16/2007 MEDICARE ANNUAL WELLNESS VISIT 06/16/2007 RSV VACCINE (1 - 1-dose 75+ series) 2017 COVID-19 Vaccine ( season) 2023 11/21/2021, 11/29/2020, 05/01/2020, Additional history exists INFLUENZA VACCINE (#1) 2023 , 11/09/2021, 11/10/2020, Additional history exists A1C 12/27/2023 09/26/2023, 07/09/2023 LIPID 07/08/2024 07/09/2023 HEMOGLOBIN 09/19/2024 09/20/2023, 08/0 06/2023, 09/09/2023, Additional history exists BMP 09/23/2024 09/24/2023, 08/1 07/2023, 09/20/2023, Additional history exists DTAP/TDAP/TD IMMUNIZATION (2 - Td or Tdap) 09/11/2029 09/12/2019 Pneumococcal Vaccine: 65+ Years Completed 10/16/2017, 03/02/2016 ZOSTER IMMUNIZATION Completed 06/12/2018, 10/16/2017, 05/18/2011 URINALYSIS Completed 09/20/2023, 09/07/2023 PHQ-2 (once per calendar year) Completed 10/11/2023 HPV IMMUNIZATION Aged Out No longer e ligible based on patient's age to complete this topic MENINGITIS IMMUNIZATION Aged Out No l onger eligible based on patient's age to complete this topic RSV MONOCLONAL ANTIBODY Aged Out No l onger eligible based on patient's age to complete this topic Procedures Procedure Name Priority Date/Time Associated Diagnosis [...] 5.7(H) <5.7 % 09/26/2023 12:20 PM CDT [facility] Comment: Normal <5.7% Prediabetes 5.7-6.4% Diabetes 6.5% or higher Note: Adopted from ADA consensus guidelines. Blood STRUCTURE OF LEFT UPPER LIMB / Unknown Venipuncture / Unknown 09/26/2023 5:00 AM CDT 09/26/2023 8:06 AM CDT us Carlee Lemons PA-C LAB - BLOOD ORDERABLES F inal Result [facility] [place] Core Lab [address] [facility], Room [address] [place] [phone], [facility] * (ABNORMAL) Basic metabolic panel (09/24/2023 5:53 AM CDT) Sodium 141 135 - 145 mmol/L 09/24/2023 6:37 AM CDT LABORATORY Potassium 4.1 3.4 - 5.3 mmol/L 09/24/2023 6:37 AM CDT LABORATORY Chloride 106 98 - 107 mmol/L 09/24/2023 6:37 AM CDT LABORATORY Carbon Dioxide (CO2) 22 22 - 29 mmol/L 09/24/2023 6:37 AM CDT LABORATORY Anion Gap 13 7 - 15 mmol/L 09/24/2023 6:37 AM CDT LABORATORY Urea Nitrogen 13.3 8.0 - 23.0 mg/dL 09/24/2023 6:37 AM CDT LABORATORY Creatinine 0.86 0.51 - 0.95 mg/dL 09/24/2023 6:37 AM CDT LABORATORY GFR Estimate 67 >60 mL/min/1.7 3m2 09/24/2023 6:37 AM CDT LABORATORY Comment:eGFR calculated usin 2020 CKD-EPI equation. Calcium 8.8 8.8 - 10.4 mg/dL 09/24/2023 6:37 AM CDT LABORATORY Comment:Reference intervals for this test were updated on 08/21/2023 to reflect our healthy population more accurately. There may be differences in the flagging of prior results with similar values performed with this method. Those prior results can be interpreted in the context of the updated reference intervals. Glucose 112(H) 70 - 99 mg/dL 09/24/2023 6:37 AM CDT LABORATORY Blood STRUCTURE OF LEFT HAND / Unknown Venipuncture / Unknown 09/24/2023 5:53 AM CDT 09/24/2023 6:11 AM CDT us Lawrence Olivares APRN [facility] LAB - BLOOD ORDERABLE S Final Result LABORATORY [facility] Acute [facility] Lab [address] [facility] Lab (1st floor, no room number) [place] [address], [facility] * (ABNORMAL) UA with Microscopic (09/20/2023 7:29 PM CDT) Color Urine Light Yellow Colorless, Straw, Light Yellow, Yellow 09/20/2023 8:02 PM CDT LABORATORY Appearance Urine Clear Clear 09/20/19 8:02 PM CDT LABORATORY Glucose Urine Negative Negative mg/dL 09/20/2023 8:02 PM CDT LABORATORY Bilirubin Urine Negative Negative 8:02 PM CDT LABORATORY Ketones Urine Trace(A) Negative mg/dL 09/20/2023 8:02 PM CDT LABORATORY Specific [place] Urine 1.012 1.003 - 1.035 09/20/2023 8:02 [...] LAB - URINE ORDERABLES F inal Result LABORATORY [facility] Acute Care Lab [address] Lab (1st floor, no room number) [place] [address], [place] * (ABNORMAL) CBC with platelets and differential [...] LAB - BLOOD ORDERABLES F inal Result [facility] LABORATORY [facility] Acute Care Lab [address] Lab (1st floor, no room number) [place] [address], [facility] * Lipid Panel (External Result) (07/09/2023 11:30 AM CDT) Pathologist [facility] Cholesterol (External) 151 90 - 199 mg/dL [facility] Triglycerides (External) 81 40 - 149 mg/dL [facility] HDL Cholesterol (External) 59 >=50 mg/dL [facility] LDL Cholesterol Calculated (External) 76 <100 mg/dL [facility] Blood 07/09/2023 11:3 0 AM CDT Narrative [facility] - 07/09/2023 11:30 AM CDT [facility] - External Lab Results us Provider Outside LAB - HIM EXTERNAL RESULT Final Result [facility] [address] [place] [address], [facility] [phone] from Last 3 Months or Most Recently Relevant to Health Maintenance Insurance UCARE MEDICARE UCARE MEDICARE Advance Directives For more information, please contact: [phone] * Full Code (Latest Code Status on File) Date Activated Date Inactivated Comments 09/24/2023 12:56 PM Question Answer Comments Code status determined by: Discussion with cody nt/ legal decision maker * Full Code [...] Comments Code status determined by: Discussion with cody nt/ legal decision maker Care Teams House Mover Supervisor Relationship Specialty Start Date End Date [address] [address] PCP - General 09/07/23 Arvin Fernandez PA-C [address] [address] Assigned Neuroscience Provider 10/29/23
--- OUTSIDE RECORDS SUMMARY | 2024-01-10 10:33 | XMS_ITS | Encounter Summary ---
Author Organization [place] Address [address] [facility] [place] [address] Care Team Providers Care Professor Of Communication Name Role Phone Clinic, [facility] Primary Care Provider Rashmi Paz [facility] Unavailable Carlee Lemons PA-C Unavailable [phone] Encounter Details Date Type Department Care Team (Latest Contact Info) Description 10/09/2023 Travel Social History Tobacco Use Types Packs/Day Years Used Date Smoking Tobacco: Never Smokeless Tobacco: Never Alcohol Use Standard Drinks/Week Comments No 0 (1 standard drink = 0.6 oz pur e alcohol) Adolescent Education Answer Date Record ed Getting School Help Needed Not on file 09/06 Comments No Sex and Gender Information Value Date Recorded Sex Assigned at Not on file Legal Sex Female 8:48 AM CDT Gender Identity Not on file Sexual Orientation Not on file documented as of this encounter Plan of Treatment Not on file documented as of this encounter Visit Diagnoses Not on filedocumented in this encounter Additional Health Concerns Infection Onset Date Last Indicated Resolved Time Recovered COVID 09/21/2023 09/21/2023 12/05/2023 1 1:39 PM CDT documented as of this encounter Care Teams Professor Of Communication Relationship Specialty Start Date End Date Clinic, [facility] [address] [place] [address] PCP - General 09/07/23 Rashmi Paz [facility] [address] [place] [phone] 09/24/23 10/17/23 Carlee Lemons PA-C [address] [place] [address] Physician Railroad Car Painter Physician Railroad Car Painter - Medical 09/24/23 10/17/23 documented as of this encounter
--- OUTSIDE RECORDS SUMMARY | 2024-01-10 10:33 | XMS_ITS | Encounter Summary ---
Author Organization [place] Address [facility] [place] [address] Care Team Providers Care Director Web Name Role Phone Clinic, [facility] Primary Care Provider Arvin Fernandez PA-C Unavailable [phone] Reason for Visit * Reason Onset Date Comments Home Care/Hospice 10/30/2023 Encounter Details Date Type Department Care Team (Late st Contact Info) Description 10/30/2023 Telephone [facility] [address] [place] [phone] Ebony Patel DO [address] [place] [phone] Home Care/Hospice Social History Tobacco Use Types Packs/Day Years [...] on file documented as of this encounter Miscellaneous Notes * Telephone Encounter - Jolie Lerma RN - 10/31/2023 11:02 AM CDT Left a detailed message for OT on clarify that the home care requested orders needs to go to pt PCP. Pete Lerma RN [facility] * Telephone Encounter - Ebony Patel DO - 10/31/2023 10:38 AM CDT Would prefer this goes to her PCP as I only followed at TCU and she has now discharged home. Pleasehave home care clarify with Consuelo who her PCP is. Thanks! * Telephone Encounter - Beatrice Matthew RN - 10/30/2023 3:42 PM CDT Home Care is calling regarding an established patient with [facility]. Requesting orders from: Ebony Patel DO Provider is following patient: Yes Is this a 60-day recertification request? No Orders Requested Occupational Therapy Request for initial certification (first set of orders) Frequency: 2x/wk for 5 wks then 1x/wk for 3 wks Information was gathered and will be sent to provider for review. RN will contact Home Care with information after provider review. Confirmed ok to leave a detailed message with call back. Contact information confirmed and updated as needed. Beatrice Matthew RN documented in this encounter Plan of Treatment Not on file documented as of this encounter Visit Diagnoses Not on filedocumented in this encounter Additional Health Concerns Infection Onset Date Last Indicated Resolved Time Recovered COVID 09/21/2023 09/21/2023 12/05/2023 1 1:39 PM CDT documented as of this encounter Care Teams Director Web Relationship Specialty Start Date End Date Clinic, [facility] [address] [place] [address] PCP - General 09/07/23 Arvin Fernandez PA-C [address] [address] Assigned Neuroscience Provider 10/29/23 documented as of this encounter
--- OUTSIDE RECORDS SUMMARY | 2024-01-10 10:33 | XMS_ITS | Encounter Summary ---
Author Organization [place] Address [address] [facility] [place] [address] Care Team Providers Care Irrigation Flume Layer Name Role Phone [facility], [facility] Primary Care Provider Rashmi Paz [facility] Unavailable Carlee Lemons PA-C Unavailable [phone] Encounter Details Date Type Department Care Team (Latest Contact Info) Description 10/11/2023 Travel Social History Tobacco Use Types Packs/Day [...] documented as of this encounter Care Teams Irrigation Flume Layer Relationship Specialty Start Date End Date Clinic, [facility] [address] [place] [address] PCP - General 09/07/23 Rashmi Paz [facility] [address] [place] [address] 09/24/23 10/17/23 Carlee Lemons PA-C [address] [place] [address] Physician Dust Mop Maker Physician Dust Mop Maker - Medical 09/24/23 10/17/23 documented as of this encounter
--- OUTSIDE RECORDS SUMMARY | 2024-01-10 10:33 | XMS_ITS | Encounter Summary ---
Author Organization [place] Address [facility] [place] [address] Care Team Providers Care Windows Systems Admin Name Role Phone Clinic, [facility] Primary Care Provider Rashmi Paz [facility] Unavailable Carlee Lemons PA-C Unavailable [phone] Reason for Visit * Reason Comments RECHECK Encounter Details Date Type Department Care Team (Late st Contact Info) Description 10/09/2023 7:30 AM CDT Transitional Care Unit Visit [facility] [address] [place] [phone] Carlee Lemons PA-C [address] [place] [phone] Post herpetic neuralgia (Primary Dx); Type 2 diabetes mellitus without complication, without long-term current use of insulin (H); Essential hypertension; Vertigo Social History Tobacco Use Types Packs/Day Years [...] on file documented as of this encounter Last Filed Vital Signs Vital Sign Reading Time Taken Comments Blood Pressure 116/70 10/09/2023 6:36 AM CDT Pulse 100 10/09/2023 6:36 AM CDT Temperature 36.7 C (98.1 F) 10/09/2023 6:36 AM CDT Respiratory Rate 18 10/09/2023 6:36 AM CDT Oxygen Saturation 100% 10/09/2023 6:36 AM CDT Inhaled Oxygen Concentration - - Weight 67.4 kg (148 lb 9.6 oz) 10/09/2023 6:36 A M CDT Height 165.1 cm (5' 5) 10/09/2023 6:36 AM CDT Body Mass Index 24.73 10/09/2023 6:36 AM CDT documented in this encounter Progress Notes * Carlee Lemons PA-C - 10/09/2023 7:30 AM CDT Chief Complaint Patient presents with RECHECK HPI: Consuelo Rasheed is a 83 year old (1940), who is being seen today for an episodic care visit at: [facility] [[id number]]. Brief summary: Consuelo Rasheed is an 83-year-old female with a past medical history of type 2 diabetes, hypertension, migraines who was recently hospitalized x 2 at [facility] 09/06 - 09/11/2023: Presented for evaluation of recurrent falls and centerline of generalized weakness due to COVID-19. Found to have intracranial hemorrhage. Manage conservatively. Did not receive specific treatment for COVID. Was discharged home with home care 09/19 - 09/24/2023: Presented for evaluation of recurrent falls and vertigo. 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 MRI negative for CVA. Some concern of cognitive decline from family. Assessed by therapies and discharged to [facility] Today's concern is: Doing well. Lidoderm patch has been helpful for postherpetic neuralgia. No further dizziness. Hoping to discharge in the next week or so. Feels she has gotten stronger. Review of long term EMR:SBP 107-121, Wt 148.6, BG 119-195 Allergies, and PMH/PSH reviewed in [facility] today. REVIEW OF SYSTEMS: 4 point ROS including Respiratory, CV, GI and , other than that noted in the HPI, is negative Objective: BP 116/70 Pulse 100 Temp 98.1 ??F (36.7 ??C) Resp 18 Ht 1.651 m (5' 5) Wt 67.4 kg (148 lb 9.6 oz) SpO2 100% BMI 24.73 kg/m?? Physical Exam Vitals (Facility EMR) reviewed. Constitutional: General: She is not in acute distress. HENT: Head: Normocephalic and atraumatic. Eyes: General: No scleral icterus. Cardiovascular: Rate and Rhythm: Normal rate and regular rhythm. Heart sounds: No murmur heard. Pulmonary: Effort: Pulmonary effort is normal. Musculoskeletal: Right lower leg: No edema. Left lower leg: No edema. Skin: General: Skin is warm and dry. Findings: No rash. Neurological: Mental Status: She is alert. Mental status is at baseline. Psychiatric: Behavior: Behavior normal. MED REC REQUIRED Post Medication Reconciliation Status: discharge medications reconciled and changed, per note/orders Recent labs in [facility] reviewed by me today. and Most Recent 3 CBC's: Recent Labs Lab Test 09/20/23 1556 09/10/23 0618 09/09/23 0806 WBC 6.9 3.6* 4.0 HGB 9.5* 8.7* 8.4* MCV 99 100 99 PLT 372 153 141* Most Recent 3 BMP's: Recent Labs Lab Test 09/26/23 0500 09/24/23 0553 09/23/23200709/23/23 1255 09/21/23 2136 09/21/23 0919 NA 138 141 -- -- -- 140 POTASSIUM 3.8 4.1 -- 3.7 < > 3.1* CHLORIDE 103 106 -- -- -- 103 CO2 24 22 -- -- -- 24 BUN 21.6 13.3 -- -- -- 17.9 CR 1.10* 0.86 -- -- -- 1.12* ANIONGAP 11 13 -- -- -- 13 MANDY 9.0 8.8 -- -- -- 8.6* GLC 119* 112* 117* -- -- 107* < > = values in this interval not displayed. Most Recent 2 LFT's:No lab results found. 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 Sx improved -PT/OT - Continue as needed meclizine, no use at TCU Postherpetic neuralgia - 2 lidocaine patches to right abdomen daily. Notes improvement with lidocaine - Avoid gabapentin for now given recurrent falls History of recurrent falls History of intracranial hemorrhage: Managed conservatively. Denies GIBBS. - PT/OT -Neurosurgery follow-up 10/10 COVID recovered: Denies residual symptoms - Likely contributing to recurrent falls and weakness CKD, IIIa: Creatinine peaked at 1.2. Improved to 0.86. Estimated Creatinine Clearance: 39.1 mL/min (A) (based on SCr of 1.1 mg/dL (H)). - BMP 09/25 stable at 1.1 Hyponatremia Hypokalemia: - BMP 09/25 stable lytes Cognitive impairment: Possibly multifactorial secondary to recent illness and head bleed. MoCA during hospital stay - OT and social work following. Cognition score at TCU with [facility]UMS 02/03. CPT pending - TSH and vitamin B12 within normal limits Hypertension: - Continue hydrochlorothiazide, metoprolol and losartan - BP appropriate. Patient denies dizziness [id number] type 2 diabetes: -A1c at TCU noted to be suppressed at 5.7. Metformin discontinued due to risk of hypoglycemia causing falls - Continue to monitor blood glucoses twice daily Sunday. Appropriate Orders: NNO Electronically signed by: Carlee Lemons PA-C documented in this encounter Plan of Treatment Not on file documented as of this encounter Visit Diagnoses Diagnosis Post herpetic neuralgia- Primary Herpes zoster with other nervous system complications Type 2 diabetes mellitus without complication, without long-term current use of insulin (H) Essential hypertension Unspecified essential hypertension Vertigo Dizziness and giddiness documented in this encounter Additional Health Concerns Infection Onset Date Last Indicated Resolved Time Recovered COVID 09/21/2023 09/21/2023 12/05/2023 1 1:39 PM CDT documented as of this encounter Care Teams Windows Systems Admin Relationship Specialty Start Date End Date Clinic, [address] [address] PCP - General 09/07/23 [facility] [address] [place] [address] 09/24/23 10/17/23 Carlee Lemons PA-C [address] [place] [address] Physician Repulping Supervisor Physician Repulping Supervisor - Medical 09/24/23 10/17/23 documented as of this encounter
--- OUTSIDE RECORDS SUMMARY | 2024-01-10 10:33 | XMS_ITS | Encounter Summary ---
Author Organization [place] Address [facility] [place] [address] Care Team Providers Care Oven Baker Name Role Phone Clinic, [facility] Primary Care Provider Rashmi Paz [facility] Unavailable Carlee Lemons PA-C Unavailable [phone] Reason for Visit * Reason Comments Hospital F/U Encounter Details Date Type Department Care Team (Late st Contact Info) Description 10/12/2023 9:00 AM CDT Transitional Care Unit Visit [facility] [address] [place] [phone] Ebony Patel, DO [address] [place] [address] [phone] Fall, subsequent encounter (Primary Dx); Intraventricular hemorrhage (H); Physical deconditioning; Multiple myeloma, remission status unspecified (H); Anemia, unspecified type; Chronic kidney disease, stage 3a (H); Essential hypertension; Type 2 diabetes mellitus without complication, without long-term current use of insulin (H); Cognitive impairment; Post herpetic neuralgia Social History Tobacco Use Types Packs/Day Years [...] Sign Reading Time Taken Comments Blood Pressure 112/61 10/12/2023 7:52 AM CDT Pulse 63 10/12/2023 7:52 AM CDT Temperature 36.3 C (97.3 F) 10/12/2023 7:52 AM CDT Respiratory Rate 18 10/12/2023 7:52 AM CDT Oxygen Saturation 99% 10/12/2023 7:52 AM CDT Inhaled Oxygen Concentration - - Weight 67.4 kg (148 lb 9.6 oz) 10/12/2023 7:52 A M CDT Height 165.1 cm (5' 5) 10/12/2023 7:52 AM CDT Body Mass Index 24.73 10/12/2023 7:52 AM CDT documented in this encounter Progress Notes * Ebony Patel, DO - 10/12/2023 9:00 AM CDT [facility] PHYSICIAN NOTE PRIMARY CARE PROVIDER AND CLINIC: [facility], [address] [place] [address] Chief Complaint Patient presents with Hospital F/U [place] [facility] Service where encounter took place: [facility] [[id number]] Consuelo Rasheed is a 83 year old (1940), admitted to the above facility from [facility]. Hospital stay 09/20/23 through 09/24/23. Admitted to this facility for rehab, medical management, and nursing care. HPI: HPI information obtained from: facility chart records, facility staff, patient report, and [facility] chart review. Brief summary of hospital course: Consuelo Rasheed is an 83yoF with two recent hospital admissions.First was early on in September with generalized weakness and several falls, one of which she reportedly hit her head but no known LOC. This was all in the setting of poor oral intake with recent both shingles and COVID infections. Does have underlying multiple myeloma but not currently on active therapy. Head CT noted an acute intraventricular hemorrhage in the occipital horn of the lateral ventricles with mild lateral and third ventriculomegaly. Followed with serial CT with improvement. Had ADRIAN as well d/t dehydration and Cr improved to baseline with IVF administration; also UTI could have been a contributor with antibiotics administered. No COVID specific therapies needed as was several days out from initial diagnosis and not hypoxic. Ultimately discharged home to her senior apartment with home care and family support. However, readmitted just over a week later as was still quite deconditioned and c/o significant vertigo. Thankfully the vertigo didn't recur after admission. MRI/A was unremarkable for acute findings and mild dehydration again treated with IVF. Family (grandson who danuta physician) noted concern of gradual cognitive impairment developing in Consuelo over the past fewyears and hospital team performed MoCA with her and recommended manager intermediate outpatient follow up. No signs of delirium. Ultimately recommended discharge to TCU. Updates on status since intermediate admission: Recent vitals: Afebrile, BP 100-130/60-70 with HR 60-100. BID blood sugars mostly 100 but occasionally low 200. Cognitive scores at TCU: SLUMS 02/03and CPT 3.9/5.6 and noted to have poor safety awareness and impulsive at times with R sided weakness. Had follow up with neurosurg yesterday and imaging noted resolution of prior IVH and follow up nolonger needed in their clinic. No use of PRNs on review of MAR. Today, she is seen in her room in the afternoon and welcomes a visit. Is so glad that she had a positive outcome of her recent head CT and neurosurgery follow- up yesterday. Says the vertigo that was so significant prior to the hospitalization has not recurred at all not any other kinds of dizziness. Feels she has gotten so much stronger since he has been here and the Lidoderm patch for her postherpetic neuralgia on her right lower abdomen has been helpful. Is hoping to discharge home to her prior apartment sometime next week with some home care. Has family and friends that can help her adjust. Tells nice stories about her family including her grandson who is a physician in [place] with [employer]. CODE STATUS/ADVANCE DIRECTIVES DISCUSSION: CPR/Full code Patient's living condition: Independent apartment ALLERGIES: Codeine Past Medical History: Diagnosis Date Cognitive impairment DM2 (diabetes mellitus, type 2) (H) Hypertension Infection due to 2019 novel coronavirus 08/2023 Intraventricular hemorrhage (H) 09/2023 Due to fall; resolved in follow up imaging 10/2023 Multiple myeloma (H) Shingles Past Surgical History: Procedure Laterality Date APPENDECTOMY CHOLECYSTECTOMY HYSTERECTOMY TOTAL ABDOMINAL Post-discharge medication reconciliation status: [facility] to facilityMAR Current Outpatient Medications Medication Sig Dispense Refill acetaminophen (TYLENOL) 325 MG tablet Take 2 tablets (650 mg) by mouth every 4 hours as needed for mild pain or other (and adjunct with moderate or severe pain or per patient request) atorvastatin (LIPITOR) 40 MG tablet Take 40 mg by mouth every evening. Elemental iron 65 mg Vitamin C 125 mg (VITRON C) 65-125 MG TABS tablet Take 1 tablet by mouth daily hydrochlorothiazide (MICROZIDE) 12.5 MG capsule Take 12.5 mg by mouth daily Lidocaine (LIDOCARE) 4 % Patch Place 2 patches over 12 hours onto the skin every 24 hours. To prevent lidocaine toxicity, patient should be patch free for 12 hrs daily. losartan (COZAAR) 100 MG tablet Take 100 mg by mouth daily meclizine (ANTIVERT) 25 MG tablet Take 1 tablet (25 mg) by mouth 3 times daily as needed for dizziness metoprolol succinate ER (TOPROL XL) 50 MG 24 hr tablet Take 50 mg by mouth daily multivitamin, therapeutic (THERA-VIT) TABS tablet Take 1 tablet by mouth daily ondansetron (ZOFRAN ODT) 4 MG ODT tab Take 1 tablet (4 mg) by mouth every 6 hours as needed for nausea or vomiting potassium chloride phil ER (KLOR-CON M20) 20 MEQ CR tablet Take 2 tablets (40 mEq) by mouth daily senna-docusate (SENOKOT-S/PERICOLACE) 8.6-50 MG tablet Take 1 tablet by mouth 2 times daily as needed for constipation SUMAtriptan (IMITREX) 50 MG tablet Take 1 tablet (50 mg) by mouth 2 times daily as needed for migraine traZODone (DESYREL) 50 MG tablet Take 1 tablet (50 mg) by mouth at bedtime vitamin B-2 (RIBOFLAVIN) 100 MG TABS tablet Take 25 mg by mouth daily ROS: Limited secondary to cognitive impairment but today pt reports as above in HPI Exam: BP 112/61 Pulse 63 Temp 97.3 ??F (36.3 ??C) Resp 18 Ht 1.651 m (5' 5) Wt 67.4 kg (148 lb9.6 oz) SpO2 99% BMI 24.73 kg/m?? Alert, casually dressed, lying in bed in no acute distress Moist oral mucosa Heart tones regular without murmurs rubs or gallops Breathing unlabored on room air Abdomen nonobese No significant lower extremity edema Mood euthymic Does have occasional word finding difficulty in her stories though fluent speech Lidoderm patch in place right lower quadrant of abdomen Lab/Diagnostic data: Most Recent 3 CBC's: Recent Labs Lab [...] = values in this interval not displayed. Estimated Creatinine Clearance: 42.7 mL/min (A) (based on SCr of 1.1 mg/dL (H)). Most Recent TSH and T4: Recent Labs Lab Test 09/26/23 0500 TSH 0.98 Most Recent Hemoglobin A1c: Recent Labs Lab Test 09/26/23 0500 A1C 5.7* BID blood sugars mostly 100 but occasionally low 200 on carb controlled diet Vitamin B12 level elevated at 1502 on 09/26/23 Recent imagin09/07/[address]: IMPRESSION: 1. Layering hemorrhage in the occipital horn of the lateral ventricles with mild lateral and third ventriculomegaly. Ventriculomegaly can be from increased cerebral atrophy compared to 2018 or hemorrhage related or combination of both. 2. Chronic small small vessel ischemic disease and generalized cerebral volume loss, progressed compared to 2018. 09/07/23 CXR: IMPRESSION: There are no acute infiltrates. The cardiac silhouette is not enlarged. Pulmonary vasculature is unremarkable. 09/20/23 MRI/A head/neck: IMPRESSION: HEAD MRI: 1. No acute intracranial process. 2. Generalized brain atrophy and presumed microvascular ischemic changes as detailed above. HEAD MRA: 1. No large vessel occlusion or hemodynamically significant stenosis. NECK MRA: 1. No large vessel occlusion or hemodynamically significant stenosis. 10/10/23 CT Head: FINDINGS: Resolution of subarachnoid and intraventricular hemorrhage. No new areas of hemorrhage. Volume loss with background of nonspecific white matter hypoattenuation likely representing chronic small vessel ischemic change. Ventricular size is unchanged, presumed ex vacuo related to volume loss. No acute osseous abnormality. ASSESSMENT/PLAN: Fall, subsequent encounter Intraventricular hemorrhage (H) Physical deconditioning Falls at her apartment were likely multifactorial prior to admission d/t : frailty, recent shinglesinfection, recent COVID infection, dehydration with ADRIAN on CKD Had head injury with SAH and IVH and significant physical deconditioning/weakness and vertigo needing TCU admission Feels so much stronger now with on site therapies and happy with recent head CT showing resolution of head bleed; no further NS follow up needed She is hoping for a discharge home to her apartment with home care and family/friend support in thenext week or so No reports of pain and not using any of her PRNs for symptomatic relief Multiple myeloma, remission status unspecified (H) Anemia, unspecified type Chronic kidney disease, stage 3a (H) Mild anemia but appears stable; is on iron supplement B12 within normal limits Follows per her report with outpatient heme-onc on MM not currently on active therapy Cr improved from initial ADRIAN; encourage hydration Essential hypertension BP 100-130/60-70 with HR 60-100 Is on low dose Hydrochlorothiazide 12.5 mg / K+, also on Losartan 100 mg daily and Toprol XL 50 mg daily If continues on lower-end BP, may benefit from discontinuation of hydrochlorothiazide but monitor for development of edema; could defer to PCP Type 2 diabetes mellitus without complication, without long-term current use of insulin (H) BID blood sugars mostly 100 but occasionally low 200 on carb controlled diet Agree with being off of Metformin at her age/comorbidities A1c well controlled Cognitive impairment She does have some cognitive impairment that will need follow-up with her outpatient PCP with some word finding difficulty today though no concerns of current delirium Family aware as they discussed this in the hospital Anticipate home care needs upon discharge to her apartment Had hospital MoCA Cognitive scores at TCU: SLUMS 02/03 and CPT 3.9/5.6 Some degree of this could be still r/t COVID infection, 2 hospitalizations and TCU stay and could show some improvement in time, however, sounds like per notes family has noted some progressive changes over the past few years concerning for dementia Per discharge summary she is currently no longer driving Post herpetic neuralgia Feels benefit from topical Lidoderm patch to RLQ abdomen documented in this encounter Plan of Treatment Not on file documented as of this encounter Visit Diagnoses Diagnosis Fall, subsequent encounter- Primary Intraventricular hemorrhage (H) Intracerebral hemorrhage Physical deconditioning Debility, unspecified Multiple myeloma, remission status unspecified (H) Anemia, unspecified type Chronic kidney disease, stage 3a (H) Essential hypertension Unspecified essential hypertension Type 2 diabetes mellitus without complication, without long-term current use of insulin (H) Cognitive impairment Unspecified persistent mental disorders due to conditions classified elsewhere Post herpetic neuralgia Herpes zoster with other nervous system complications documented in this encounter Additional Health Concerns Infection Onset Date Last Indicated Resolved Time Recovered COVID 09/21/2023 09/21/2023 12/05/2023 1 1:39 PM CDT documented as of this encounter Care Teams Oven Baker Relationship Specialty Start Date End Date Clinic, [facility] [address] [place] [address] PCP - General 09/07/23 Rashmi pitts [facility] [address] [place] [phone] 09/24/23 10/17/23 Carlee Lemons PA-C [address] [place] [id number] Physician Fitness Plan Coordinator Physician Fitness Plan Coordinator - Medical 09/24/23 10/17/23 documented as of this encounter
--- OUTSIDE RECORDS SUMMARY | 2024-01-10 10:33 | XMS_ITS | Encounter Summary ---
Author Organization [place] Address [address] [facility] [place] [address] Care Team Providers Care Payroll Services Analyst Name Role Phone Clinic, [facility] Primary Care Provider Rashmi Paz [facility] Unavailable Carlee Lemons PA-C Unavailable [phone] Reason for Visit * Reason Comments Discharge Summary Residential Encounter Details Date Type Department Care Team (Late st Contact Info) Description 10/17/2023 10:00 AM CDT Discharge Summary Residential [facility] [address] [place] [phone] Carlee Lemons PA-C [address] [place] [phone] Discharge Summary Residential Social History Tobacco Use Types Packs/Day Years [...] Sign Reading Time Taken Comments Blood Pressure 110/75 10/17/2023 9:41 AM CDT Pulse 100 10/17/2023 9:41 AM CDT Temperature 36.3 C (97.4 F) 10/17/2023 9:41 AM CDT Respiratory Rate 16 10/17/2023 9:41 AM CDT Oxygen Saturation 96% 10/17/2023 9:41 AM CDT Inhaled Oxygen Concentration - - Weight 67.9 kg (149 lb 9.6 oz) 10/17/2023 9:41 A M CDT Height 165.1 cm (5' 5) 10/17/2023 9:41 AM CDT Body Mass Index 24.89 10/17/2023 9:41 AM CDT documented in this encounter Progress Notes * Carlee Lemons PA-C - 10/17/2023 10:[address] [facility] DISCHARGE SUMMARY PATIENT'S NAME: Consuelo Rasheed DATE OF : 1940 Place of Service where encounter took place: [facility]) [[id number]] PRIMARY CARE PROVIDER AND CLINIC RESPONSIBLE AFTER TRANSFER: [place] [address] [facility] [place] Transferring providers: Carlee Lemons PA-C, Ebony Patel DO Recent Hospitalization/ED: [facility] Hospital stay 09/20/23 to 09/24/23. Date of SNF Admission: September 24, 2023 Date of SNF (anticipated) Discharge: 10/17/23- Patient driven discharge Discharged to: previous independent home Cognitive Scores: SLUMS: /30 and CPT: 3.9/5.6 Physical Function: Ambulating 300 ft with 4ww and SBA DME: No new DME needed CODE STATUS/ADVANCE DIRECTIVES DISCUSSION: Full Code ALLERGIES: Codeine NURSING FACILITY COURSE Medication Changes/Rationale: Metformin d/c'd due to A1C < 6 Addendum: See note 11/02 HCTZ d/c on follow up visit due to soft BPs Summary of nursing facility stay: Consuelo Rasheed is an 83-year-old female with a past medical history of type 2 diabetes, hypertension, migraines who was recently hospitalized x 2 at [facility]. 09/06 - 09/11/2023: Presented for evaluation of [...] family. Assessed by therapies and discharged to TCU Patient progressed with physical therapy. Had follow-up with neurosurgery and repeat head CT showedresolution of intercranial hemorrhage. Based on her cognition scores with SLUMs 02/03 and CPT 3.9/5.6 transition to CARE HOME was recommended. Patient and family aware of recommendations but electing to dis charge back to her independent apartment with home care. 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 Sx improved -PT/OT Postherpetic neuralgia - 2 lidocaine patches to right abdomen daily. - Avoid gabapentin for now given recurrent falls History of recurrent falls History of intracranial hemorrhage: Managed conservatively. Denies GIBBS. - PT/OT -Neurosurgery follow-up 10/10 with resolution of intracranial hemorrhage on CT COVID recovered: Denies residual symptoms - Likely [...] score at TCU with SLUMS 02/03. CPT 3.9/5.6. CARE HOME recommended but patient/family electing to d/c to ILF - TSH and vitamin B12 within normal limits Hypertension: - Continue hydrochlorothiazide, metoprolol and losartan - BP appropriate. Patient denies dizziness Env-mdcvecp-xfppfbagg type 2 diabetes: -A1c at TCU noted to be suppressed at 5.7. Metformin discontinued due to risk of hypoglycemia causing falls - Continue to monitor blood glucoses twice daily Sunday. Appropriate Discharge Medications: MED REC REQUIRED Post Medication Reconciliation Status: discharge medications reconciled and changed, per note/orders Current Outpatient Medications Medication Sig Dispense Refill [...] tablet Take 25 mg by mouth daily Controlled medications: not applicable/none Past Medical History: Past Medical History: Diagnosis Date Cognitive impairment DM2 (diabetes mellitus, type 2) (H) Hypertension Infection due to 2019 novel coronavirus 08/2023 Intraventricular hemorrhage (H) 09/2023 Due to fall; resolved in follow up imaging 10/2023 Multiple myeloma (H) Shingles Physical Exam: Vitals: BP 110/75 Pulse 100 Temp 97.4 ??F (36.3 ??C) Resp 16 Ht 1.651 m (5' 5) Wt 67.9 kg (149 lb 9.6 oz) SpO2 96% BMI 24.89 kg/m?? BMI: Body mass index is 24.89 kg/m??. Physical Exam Vitals (Facility EMR) reviewed. Constitutional: General: She is not in acute distress. HENT: Head: Normocephalic and atraumatic. Eyes: General: No scleral icterus. Cardiovascular: Rate and Rhythm: Normal rate and regular rhythm. Heart sounds: No murmur heard. Pulmonary: Effort: Pulmonary effort is normal. Breath sounds: No wheezing. Musculoskeletal: Right lower leg: No edema. Left lower leg: No edema. Skin: General: Skin is warm and dry. Findings: No rash. Neurological: Mental Status: She is alert. Mental status is at baseline. Psychiatric: Behavior: Behavior normal. SNF labs: Recent labs in [facility] reviewed by me today. and Most Recent 3 CBC's: Recent Labs Lab Test 09/20/23 1556 09/10/23 0618 09/09/23 0806 WBC 6.9 3.6* 4.0 HGB 9.5* 8.7* 8.4* MCV 99 100 99 PLT 372 153 141* Most Recent 3 BMP's: Recent Labs Lab Test 09/26/23 0500 09/24/23 0553 09/23/23 2008 09/23/23 1255 09/21/23 2136 09/21/23 0919 NA 138 141 -- -- -- 140 POTASSIUM 3.8 4.1 -- 3.7 < > 3.1* CHLORIDE 103 106 -- -- -- 103 CO2 22 -- -- -- BUN 21.6 13.3 -- -- -- 17.9 CR 1.10* 0.86 -- -- -- 1.12* ANIONGAP 11 13 -- -- -- 13 MANDY 9.0 8.8 -- -- -- 8.6* GLC 119* 112* 117* -- -- 107* < > = values in this interval not displayed. Most Recent 2 LFT's:No lab results found. Most Recent TSH and T4: Recent Labs Lab Test 09/26/23 0500 TSH 0.98 Most Recent Hemoglobin A1c: Recent Labs Lab Test 09/26/23 0500 A1C 5.7* Most Recent Anemia Panel: Recent Labs Lab Test 09/26/23 0500 09/20/23 1556 WBC -- 6.9 HGB -- 9.5* HCT -- 28.3* MCV -- 99 PLT -- 372 B12 1,502* -- DISCHARGE PLAN: Follow up labs: No labs orders/due Medical Follow Up: Follow up with primary care provider in 1-2 weeks [facility] scheduled appointments: Appointments in Next Year Oct 17, 2023 10:00 AM Discharge Summary with Carlee Lemons PA-C [facility] ([facility] ) [phone] Discharge Services: Home Care: Occupational Therapy, Physical Therapy, and Registered Nurse Discharge Instructions Verbalized to Patient at Discharge: Monitor blood glucose monitoring 2 times a day, 3 days a week. Keep a record and bring it to your next primary provider visit. TOTAL DISCHARGE TIME: Greater than 30 minutes Electronically signed by: Carlee Lemons PA-C Documentation of Face to Face and Certification for Home Health Services I certify that services are/were furnished while this patient was under the care of a physician andthat a physician or an allowed non-physician practitioner (NPP), had a [id number] encounter that meets the physician [id number] encounter requirements. The encounter was in whole, or in part, related to the primary reason for home health. The patient is confined to his/her home and needs intermittent alf, physical therapy, speech-language pathology, or the continued need for occupational therapy. A plan of care has been established by a physician and is periodically reviewed by a physician. Date of [id number] Encounter: 10/17/2023. I certify that, based on my findings, the following services are medically necessary home health services: Nursing, Occupational Therapy, and Physical Therapy. My clinical findings support the need for the above skilled services because: Requires assistance of another person or specialized equipment to access medical services because patient: Requires supervision of another for safe transfer... Patient to re-establish plan of care with their PCP within 7-10 days after leaving the facility to reestablish care. Medicare certified PECOS provider: Carlee Lemons PA-C Date: October 17, 2023 documented in this encounter Plan of Treatment Not on file documented as of this encounter Visit Diagnoses Not on filedocumented in this encounter Additional Health Concerns Infection Onset Date Last Indicated Resolved Time Recovered COVID 09/21/2023 09/21/2023 12/05/2023 1 1:39 PM CDT documented as of this encounter Care Teams Payroll Services Analyst Relationship Specialty Start Date End Date Clinic, [facility] [address] [place] [address] PCP - General 09/07/23 TcRashmi pitts [facility] [id number] [place] [phone] 09/24/23 10/17/23 Carlee Lemons PA-C [address] [place] [address] Physician Internal Medicine Nurse Physician Internal Medicine Nurse - Medical 09/24/23 10/17/23 documented as of this encounter
--- OUTSIDE RECORDS SUMMARY | 2024-01-10 10:33 | XMS_ITS | Encounter Summary ---
Author Organization [place] Address [address] [place] [address] Care Team Providers Care Loft Worker Name Role Phone Clinic, [facility] Primary Care Provider Rashmi Paz [facility] [place] [facility] Unavailable Carlee Lemons PA-C Unavailable [phone] Reason for Referral * Diagnostic Imaging CT Scan (Routine) - Closed Specialty Diagnoses / Procedures Referred By Heber luna Referred To Contact Radiology. Diagnoses Intraventricular hemorrhage (H) Procedures CT Head w/o contrast* Christian Maxwell CNP [place] [address] Phone: tel: fax: Referral ID Status Reason Start Date Expiration Date Visits Re quested Visits Authorized [id number] Closed 09/09/2023 09/08/2024 1 1 Reason for Visit * Diagnostic Imaging CT Scan (Routine) - Closed Specialty Diagnoses / Procedures Referred By Heber luna Referred To Contact Radiology. Diagnoses Intraventricular hemorrhage (H) Procedures CT Head w/o contrast* Christian Maxwell CNP [place] [address] Phone: tel: fax: Referral ID Status Reason Start Date Expiration Date Visits Re quested Visits Authorized [id number] Closed 09/09/2023 09/08/2024 1 1 Encounter Details Date Type Department Care Team (Latest Contact Info) Description 10/10/2023 8:49 AM CDT - 10/10/2023 11:59 PM CDT Hospital Encounter [facility] [address] [place] [address] Christian Maxwell CNP [place] [address] Intraventricular hemorrhage (H) Discharge Disposition: Home or Self Care Social History Tobacco Use Types Packs/Day Years [...] on file documented as of this encounter Medications at Time of Discharge acetaminophen (TYLENOL) 325 MG tabletIndications :ADRIAN (acute kidney injury) (H) Take 2 tablets (650 mg) by mouth every 4 hours as needed for mild pain or other (and adjunct with moderate or severe pain or per patient request) 09/24/2023 atorvastatin (LIPITOR) 40 MG tablet Take 40 mg by mouth every evening. Elemental iron 65 mg Vitamin C 125 mg (VITRON C) 65-125 MG TABS tablet Take 1 tablet by mouth daily Lidocaine (LIDOCARE) 4 % PatchIndications: Post herpetic neuralgia Place 2 patches over 12 hours onto the skin every 24 hours. To prevent lidocaine toxicity, patient should be patch free for 12 hrs daily. 10/01/2023 losartan (COZAAR) 100 MG tablet Take 100 mg by mouth daily meclizine (ANTIVERT) 25 MG tabletIndications :Vertigo Take 1 tablet (25 mg) by mouth 3 times daily as needed for dizziness 09/24/2023 metoprolol succinate ER (TOPROL XL) 50 MG 24 hr tablet Take 50 mg by mouth daily multivitamin, therapeutic (THERA-VIT) TABS tablet Take 1 tablet by mouth daily ondansetron (ZOFRAN ODT) 4 MG ODT tabIndications:AK I (acute kidney injury) (H) Take 1 tablet (4 mg) by mouth every 6 hours as needed for nausea or vomiting 09/24/2023 senna-docusate (SENOKOT-S/RANDI LACE) 8.6-50 MG tabletIndications :ADRIAN (acute kidney injury) (H) Take 1 tablet by mouth 2 times daily as needed for constipation 09/24/2023 SUMAtriptan (IMITREX) 50 MG tabletIndications :ADRIAN (acute kidney injury) (H) Take 1 tablet (50 mg) by mouth 2 times daily as needed for migraine 09/24/2023 traZODone (DESYREL) 50 MG tabletIndications :Insomnia, unspecified type Take 1 tablet (50 mg) by mouth at bedtime 09/24/2023 vitamin B-2 (RIBOFLAVIN) 100 MG TABS tablet Take 25 mg by mouth daily hydrochlorothiazi de (MICROZIDE) 12.5 MG capsule Take 12.5 mg by mouth daily 4 potassium chloride phil ER (KLOR-CON M20) 20 MEQ CR tabletIndications :ADRIAN (acute kidney injury) (H) Take 2 tablets (40 mEq) by mouth daily 09/25/2023 4 documented as of this encounter Plan of Treatment Not on file documented as of this encounter Procedures Procedure Name Priority Date/Time Associated Diagnosis Comments CT HEAD W/O CONTRAST Routine 10/10/2023 9:09 AM CDT Intraventricular hemorrhage (H) documented in this encounter Results * CT Head w/o contrast* (10/10/2023 9:09 AM CDT) Anatomical Region Laterality Modality Head, SUBRAD CT NEURO, SUBRA D CT NEURO, UMP CT NEURO, RAD CT Computed Tomography Impressions 10/10/2023 11:30 AM CDT IMPRESSION: 1. Resolution of intracranial hemorrhage. 2. Chronic changes as detailed. JENNYFER HAN MD SYSTEM ID: [id number] Narrative 10/10/2023 11:[address] SCAN OF THE HEAD WITHOUT CONTRAST 10/10/2023 9:09 AM HISTORY: IVH follow-up. Intraventricular hemorrhage (H). TECHNIQUE: Axial images of the head and coronal reformations without IV contrast material. Radiation dose for this scan was reduced using automated exposure control, adjustment of the mA and/or kV according to patient size, or iterative reconstruction technique. COMPARISON: Head CT 09/10/2023, head MRI 09/20/2023. FINDINGS: Resolution of subarachnoid and intraventricular hemorrhage. No new areas of hemorrhage. Volume loss with background of nonspecific white matter hypoattenuation likely representing chronic small vessel ischemic change. Ventricular size is unchanged, presumed ex vacuo related to volume loss. No acute osseous abnormality. Procedure Note Jennyfer Han MD - 10/10/2023 CT SCAN OF THE HEAD WITHOUT CONTRAST 10/10/2023 9:09 AM HISTORY: IVH follow-up. Intraventricular hemorrhage (H). TECHNIQUE: Axial images of the head and coronal reformations without IV contrast material. Radiation dose for this scan was reduced using automated exposure control, adjustment of the mA and/or kV according to patient size, or iterative reconstruction technique. COMPARISON: Head CT 09/10/2023, head MRI 09/20/2023. FINDINGS: Resolution of subarachnoid and intraventricular hemorrhage. No new areas of hemorrhage. Volume loss with background of nonspecific white matter hypoattenuation likely representing chronic small vessel ischemic change. Ventricular size is unchanged, presumed ex vacuo related to volume loss. No acute osseous abnormality. IMPRESSION: 1. Resolution of intracranial hemorrhage. 2. Chronic changes as detailed. JENNYFER HAN MD SYSTEM ID: [id number] Christian Maxwell [facility] CT ORDERABLES Final Result documented in this encounter Visit Diagnoses Diagnosis Intraventricular hemorrhage (H) Intracerebral hemorrhage documented in this encounter Additional Health Concerns Infection Onset Date Last Indicated Resolved Time Recovered COVID 09/21/2023 09/21/2023 12/05/2023 1 1:39 PM CDT documented as of this encounter Care Teams Loft Worker Relationship Specialty Start Date End Date [facility], [facility] [address] [place] [address] PCP - General 09/07/23 Rashmi Paz [facility] [id number] [place] [phone] 09/24/23 10/17/23 Carlee Lemons PA-C [address] [place] [address] Physician Pharmacy Stock Clerk Physician Pharmacy Stock Clerk - Medical 09/24/23 10/17/23 documented as of this encounter
--- OUTSIDE RECORDS SUMMARY | 2024-01-10 10:33 | XMS_ITS | Encounter Summary ---
Author Organization [place] Address [address] [facility] [facility] [place] [address] Care Team Providers Care Road Production General Manager Name Role Phone Clinic, [facility] Primary Care Provider Rashmi Paz [facility] Unavailable Carlee Lemons PA-C Unavailable [phone] Reason for Visit * Reason Comments Hospital F/U Encounter Details Date Type Department Care Team (Late st Contact Info) Description 10/11/2023 11:30 AM CDT Office Visit [facility] [place] [address] [place] [address] Arvin Fernandez PA-C [address] [id number] IVH (intraventricular hemorrhage) (H) (Primary Dx) Social History Tobacco Use Types Packs/Day Years [...] Sign Reading Time Taken Comments Blood Pressure 112/72 10/11/2023 10:49 AM CDT Pulse 113 10/11/2023 10:49 AM CDT Temperature - - Respiratory Rate - - Oxygen Saturation 99% 10/11/2023 10:49 AM CDT Inhaled Oxygen Concentration - - Weight - - Height - - Body Mass Index - - documented in this encounter Progress Notes * Lore De Anda CRAP GAME BOX PERSON WIRE TURNING MACHINE OPERATOR - 10/11/2023 11:30 AM CDT [facility] Neurosurgery Clinic CC: IVH follow up Primary Care Provider: Clinic, [facility] Reason For Visit: Follow up after hospitalization for IVH HPI: Consuelo Rasheed is a 83 year old female who presents for evaluation of intraventricular hemorrhage s/p mechanical fall 09/07/23. Head CT at the time of hospitalization showed layering hemorrhage in the occipital horn of the lateral ventricles with mild lateral and third ventriculomegaly. The patient's repeat head CT was stable and it was recommended that she follow-up as outpatient in [address] prior. Denies any headaches, dizziness, nausea, vision/speech changes, numbness, weakness, or other neurological changes. Past Medical History: Diagnosis Date Hypertension No past surgical history on file. Current Outpatient Medications Medication Sig Dispense Refill acetaminophen (TYLENOL) 325 MG tablet Take 2 tablets (650 mg) by mouth every 4 hours as needed for mild pain or other (and adjunct with moderate or severe pain or per patient request) atorvastatin (LIPITOR) 40 MG tablet Take 40 mg by mouth daily Elemental iron 65 mg Vitamin C 125 [...] tablet Take 25 mg by mouth daily No current facility-administered medications for this visit. Allergies Allergen Reactions Codeine Other (See Comments) Hypotension Social History Socioeconomic History Marital status: Spouse name: None Number of children: None Years of education: None Highest education level: None Tobacco Use Smoking status: Never Smokeless tobacco: Never Substance and Sexual Activity Alcohol use: No Drug use: No No family history on file. ROS: 10 point ROS neg other than the symptoms noted above in the HPI. Vital Signs: BP 112/72 Pulse 113 SpO2 99% Examination: Constitutional: Alert, well nourished, NAD. HEENT: Normocephalic, atraumatic. Pulm: Without shortness of breath or audible respiratory sounds. CV: No pitting edema of BLE. Neurological: Awake Alert Oriented x 3 Speech clear Cranial nerves II - XII intact PERRL EOMI Face symmetric Tongue midline Motor exam: 5/5 strength in all four extremities Sensation intact Finger to Nose smooth Pronator drift negative Gait: Able to stand from a seated position. Normal non-antalgic, non-myelopathic gait. Imaging: CT SCAN OF THE HEAD WITHOUT CONTRAST 10/10/2023 9:09 AM IMPRESSION: 1. Resolution of intracranial hemorrhage. 2. Chronic changes as detailed. Assessment/Plan: Consuelo is a 83F who present for an evaluation and follow up after sustaining an IVH s/p mechanical fall. Her repeat head CT prior to her clinic visit today shows resolution of the intracranial hemorrhage. There is no need for future follow up as her hemorrhage has resolved. Lore De Anda, [facility] Neurosurgery documented in this encounter Nursing Notes * Rafael Whipple - 10/11/2023 11:30 AM CDT Consuelo Rasheed is a 83 year old female who presents for: Chief Complaint Patient presents with Hospital F/U Vitals: Vitals: 10/11/23 1049 BP: 112/72 Pulse: 113 SpO2: 99% BMI: Estimated body mass index is 24.73 kg/m?? as calculated from the following: Height as of 10/09/23: 5' 5 (1.651 m). Weight as of 10/09/23: 148 lb 9.6 oz (67.4 kg). Pain Score: No Pain (0) Rafael Whipple documented in this encounter Plan of Treatment Not on file documented as of this encounter Visit Diagnoses Diagnosis IVH (intraventricular hemorrhage) (H)- Primary Intracerebral hemorrhage documented in this encounter Additional Health Concerns Infection Onset Date Last Indicated Resolved Time Recovered COVID 09/21/2023 09/21/2023 12/05/2023 1 1:39 PM CDT documented as of this encounter Care Teams Road Production General Manager Relationship Specialty Start Date End Date [facility], [facility] [address] [place] [address] PCP - General 09/07/23 Rashmi pitts [facility] [id number] [place] [phone] 09/24/23 10/17/23 Carlee Lemons PA-C [address] [place] [address] Physician Toll Gate Keeper Physician Toll Gate Keeper - Medical 09/24/23 10/17/23 documented as of this encounter
--- OUTSIDE RECORDS SUMMARY | 2024-01-10 10:33 | XMS_ITS | Encounter Summary ---
Author Organization [place] Address [address] [facility] [place] [address] Care Team Providers Care Criminal Justice Social Worker Name Role Phone Carisa Mar Primary Care Provider [phone] [facility] Primary Care Provider Rashmi Paz [facility] Unavailable Carlee Lemons PA-C Unavailable [phone] Arvin Fernandez PA-C Unavailable [phone] Encounter Details Date Type Department Care Team (Late st Contact Info) Description 05/02/2020 Documentation Only INTERFACED REPORT Unknown, Provider Social History Tobacco Use Types Packs/Day Years Used Date Smoking Tobacco: Never Smokeless Tobacco: Never Alcohol Use Standard Drinks/Week Comments No 0 (1 standard drink = 0.6 oz pur e alcohol) Comments No Sex and Gender Information Value [...] Infection Onset Date Last Indicated Resolved Time COVID-19 09/06/2023 09/10/2023 09/21/2023 8:58 AM CDT Recovered COVID 09/21/2023 09/21/2023 12/05/2023 1 1:39 PM CDT documented as of this encounter Care Teams Criminal Justice Social Worker Relationship Specialty Start Date End Date Carisa Mar [facility] [address] [place] [address] PCP - General Nurse Practitioner 10/07/17 09/06/[address] [address] PCP - General 09/07/23 [facility] [address] [place] [phone] 09/24/23 10/17/23 Carlee Lemons PA-C [address] [place] [address] Physician Sprayer Leather Physician Sprayer Leather - Medical 09/24/23 10/17/23 Arvin Fernandez PA-C [address] [address] Assigned Neuroscience Provider 10/29/23 documented as of this encounter
--- OUTSIDE RECORDS SUMMARY | 2024-01-10 10:33 | XMS_ITS | Clinical Summary ---
Author Organization [employer] [facility] Address [place], [place] [address] Care Team Providers Care Survey Interviewer Name Role Phone Pcp, No Primary Care Provider Unavailsky e Damien Leong Unavailable [phone] Allergies Active Allergy Reactions Criticality Noted Date Comments Codeine Anaphylaxis 09/08/2009 Codeine Hypertension 10/12/2021 Per H&P Medications Medication Sig Dispensed Refills Start Date End Date Status albuterol sulfate 90 mcg/actuation aebs Inhale 2 Sprays by mouth. Active atorvastatin (LIPITOR) 20 mg tablet Take 20 mg by mouth at bedtime. Active ciprofloxacin-dexAMET Hasone (CIPRODEX) otic suspension 4 Drops two times daily. Active cyanocobalamin (VITAMIN B12) as quarter tablet Take 1,000 mcg by mouth once daily. Active hydroCHLOROthiazide 12.5 mg capsule Take 12.5 mg by mouth once daily. Active ibuprofen (ADVIL; MOTRIN) 200 mg cap Take 200 mg by mouth every 6 hours if needed. Active iron,carbonyl-vitamin C (VITRON C) 65 mg iron- 125 mg Delayed-Release tablet Take 1 Tablet by mouth once daily. Active losartan (COZAAR) 100 mg tablet Take 100 mg by mouth once daily. Active METOPROLOL SUCCINATE ORAL Take by mouth. Active hyaluronidase in lido 2%-bupiv. 0.75% - long eye block, clinic supply, Use as directed for procedure. Refrigerate. Exp: 11/25/22 DOS: 11/20/22 10 mL 11/13/2022 Active Immunizations Name Administration Dates Next Due COVID-19 vaccine (Moderna 10 0mcg/0.5mL) PF, MDV 11/29/2020,05/01/2020,04/03/2020 Influenza, IIV3 (Age >=3 years) 11/18/2010,10/25,11/22/1998 Zoster (Zostavax-ZVL, live) 05/18/2011 Social History Tobacco Use Types Packs/Day Years Used Date Smoking Tobacco: Never Smokeless Tobacco: Never Alcohol Use Standard Drinks/Week Comments Not Asked 0 (1 standard drink = 0.6 oz pur e alcohol) Sex and Gender Information Value Date Recorded Sex Assigned at Not on file Gender Identity Not on file Sexual Orientation Not on file Obstetrics History Last Filed Vital Signs Vital Sign Reading Time Taken Comments Blood Pressure 145/65 10/17/2021 1:15 PM CDT Pulse 65 10/17/2021 1:15 PM CDT Temperature 36.6 C (97.8 F) 10/17/2021 1:15 PM CDT Respiratory Rate 19 10/17/2021 1:15 PM CDT Oxygen Saturation 100% 10/17/2021 1:15 PM CDT Inhaled Oxygen Concentration - - Weight 84.4 kg (186 lb 1 oz) 10/13/2021 1:23 PM CDT Height 162.6 cm (5' 4) 10/13/2021 1:23 PM CDT Body Mass Index 31.94 10/13/2021 1:23 PM CDT Plan of Treatment Health Maintenance Due Date Last Done Comments Tdap 1953 Depression screening for age 12+ 1954 Tetanus booster 1962 DEXA/DXA scan for age 65+ 06/16/2007 Medicare Wellness for age 65+ 06/16/2007 Pneumococcal series for age 65+ (1 of 1 - PCV) 06/16/2007 Zoster (shingles) series for age 50+ (2 of 3) 07/13/2011 05/18/2011 RSV vaccine for adults or pr egnancy (1 - 1-dose 75+ series) 2017 BMI (ht and wt on same day) for age 18+ 11/17/2017 11/17/2016 COVID-19 vaccine series ( season) 2023 11/29/2020, 05/01/2020, 04/03/2020 Influenza for age 65+ 10/07/2023 11/18/2010 , 10/25/2009, 11/22/1998 Advance Directives * Full Code (Latest Code Status on File) Date Activated Date Inactivated Comments 10/17/2021 10:58 AM 10/18/2021 2:29 AM Question Answer Comments Code Status Discussion: Reviewed Preferences Care Teams Survey Interviewer Relationship Specialty Start Date End Date Pcp, No . PCP - General 09/26/21 Damien Leong [address] [place] [address] 09/26/21
--- OUTSIDE RECORDS SUMMARY | 2024-01-10 10:33 | XMS_ITS | Encounter Summary ---
Author Organization [place] Address [address] [place] [address] Care Team Providers Care Retail Analyst Name Role Phone Clinic, [facility] Primary Care Provider Reason for Visit * Reason Comments Snf Acute Encounter Details Date Type Department Care Team (Late st Contact Info) Description 10/24/2023 9:30 AM CDT Transitional Care Unit Visit [facility] Geriatrics [address] [place] [phone] Carlee Lemons PA-C [address] [place] [address] Fall, subsequent encounter (Primary Dx); Type 2 diabetes mellitus without complication, without long-term current use of insulin (H); Essential hypertension Social History Tobacco Use Types Packs/Day Years [...] Mass Index 24.86 10/24/2023 7:42 AM CDT documented in this encounter Progress Notes * Carele Lemons PA-C - 10/24/2023 9:30 AM CDT Chief Complaint Patient presents with Snf Acute HPI: Consuelo Rasheed is a 83 year old (1940), who is being seen today for an episodic care visit at: [facility] ([facility]) [[id number]]. Brief summary: Consuelo Rasheed is an 83-year-old female with a past medical history of type 2 diabetes, hypertension, migraines who was recently hospitalized x [address] [facility]. 09/06 - 09/11/2023: Presented for evaluation of [...] family. Assessed by therapies and discharged to [facility] Today's concern is: Discharge delayed past week. Now planning to discharge tomorrow. Discharging back to her independent home. Continues to feel well. BP has been intermittently soft with occasional readings less than 100. Denies dizziness or lightheadedness. Reviewed medication changes. Review of [facility] EMR:SBP 95-112. BG 121-160 Allergies, and PMH/PSH reviewed in [facility] today. REVIEW OF SYSTEMS: 4 point ROS including Respiratory, CV, GI and , other than that noted in the HPI, is negative Objective: BP 107/80 Pulse 73 Temp 97.3 ??F (36.3 ??C) Resp 18 Ht 1.651 m (5' 5) Wt 67.8 kg (149 lb6.4 oz) SpO2 97% BMI 24.86 kg/m?? Physical Exam Vitals (Facility EMR) reviewed. [...] and changed, per note/orders Recent labs in [facility] reviewed by me today. Assessment/Plan: Postherpetic neuralgia - 2 lidocaine patches to right abdomen daily. - Avoid gabapentin for now given recurrent falls History of recurrent falls History of intracranial hemorrhage: Managed conservatively. Denies GIBBS. - PT/OT -Neurosurgery follow-up 10/10 with resolution of intracranial hemorrhage on CT - Adjusting to BP meds as below to limit hypotension COVID recovered: Denies residual symptoms - Likely [...] at TCU with [facility] 02/03. CPT 3.9/5.6. ROXANN recommended but patient/family electing to d/c to ILF - TSH and vitamin B12 within normal limits Hypertension: -SBP's 95-1 10 - Discontinue hydrochlorothiazide - Continue metoprolol and losartan Egx-arkwdhk-xxutuprrd type 2 diabetes: -A1c at TCU noted to be suppressed at 5.7. Metformin discontinued due to risk of hypoglycemia causing falls - Continue to monitor blood glucoses twice daily Sunday. Appropriate Orders: As above Electronically signed by: Carlee Lemons PA-C documented in this encounter Plan of Treatment Not on file documented as of this encounter Visit Diagnoses Diagnosis Fall, subsequent encounter- Primary Type 2 diabetes mellitus without complication, without long-term current use of insulin (H) Essential hypertension Unspecified essential hypertension documented in this encounter Additional Health Concerns Infection Onset Date Last Indicated Resolved Time Recovered COVID 09/21/2023 09/21/2023 12/05/2023 1 1:39 PM CDT documented as of this encounter Care Teams Retail Analyst Relationship Specialty Start Date End Date Clinic, [place] [id number] PCP - General 09/07/23 documented as of this encounter
--- OUTSIDE RECORDS SUMMARY | 2024-01-10 10:33 | XMS_ITS | Encounter Summary ---
Author Organization [place] Address [address] [facility] [place] [address] Care Team Providers Care Batteryman Name Role Phone [facility], [facility] Primary Care Provider Encounter Details Date Type Department Care Team (Latest Contact Info) Description 10/24/2023 Travel Social History Tobacco Use Types Packs/Day [...] documented as of this encounter Care Teams Batteryman Relationship Specialty Start Date End Date Clinic, [place] [address] [place] [address] PCP - General 09/07/23 documented as of this encounter
--- OUTSIDE RECORDS SUMMARY | 2024-01-10 10:33 | XMS_ITS | Encounter Summary ---
Author Organization [place] Address [facility] [place] [address] Care Team Providers Care Customer Energy Specialist Name Role Phone Clinic, [facility] Primary Care Provider Rashmi Paz [facility] Unavailable Carlee Lemons PAGaby Unavailable [phone] Arvin Fernandez PA-C Unavailable [phone] Reason for Visit * Reason Comments Geriatrics Tracker Encounter Details Date Type Department Care Team (Late st Contact Info) Description 09/24/2023 Documentation Only [facility] Geriatrics [address] [place] [phone] 68 Stephanie Haley MA [address] [place] [address] Geriatrics Tracker Social History Tobacco Use Types Packs/Day Years [...] Last Indicated Resolved Time Recovered COVID 09/21/2023 09/21/202312/05/2023 1 1:39 PM CDT documented as of this encounter Care Teams Customer Energy Specialist Relationship Specialty Start Date End Date Clinic, [facility] [address] [place] [address] PCP - General 09/07/23 Rashmi Paz [facility] [address] [place] [phone] 09/24/23 10/17/23 Carlee Lemons PA-C [address] [place] [address] Physician Loft Worker Physician Loft Worker - Medical 09/24/23 10/17/23 Arvin Fernandez PA-C [address] [address] Assigned Neuroscience Provider 10/29/23 documented as of this encounter
--- OUTSIDE RECORDS SUMMARY | 2024-01-10 10:33 | XMS_ITS | Encounter Summary ---
Author Organization [place] Address [address] [facility] [place] [address] Care Team Providers Care Software Technical Lead Name Role Phone [facility], [facility] Primary Care Provider Rashmi Paz [facility] Unavailable Carlee Lemons PA-C Unavailable [phone] Encounter Details Date Type Department Care Team (Latest Contact Info) Description 10/17/2023 Travel Social History Tobacco Use Types Packs/Day [...] documented as of this encounter Care Teams Software Technical Lead Relationship Specialty Start Date End Date Clinic, [facility] [address] [place] [address] PCP - General 09/07/23 Rashmi Paz [facility] [address] [place] [address] 09/24/23 10/17/23 Carlee Lemons PA-C [address] [place] [id number] Physician Territory Representative Physician Territory Representative - Medical 09/24/23 10/17/23 documented as of this encounter
== END 2024-01-10 10:28 | disposition home or self-care (01) ==
PROVIDERS: PCP Physician Assistant Medical; Visit Provider Physician Assistant Medical
DX: D64.9 Anemia, unspecified (principal); D47.2 Monoclonal gammopathy; R73.03 Prediabetes; C90.00 Multiple myeloma not having achieved remission; E78.00 Pure hypercholesterolemia, unspecified
CPT/HCPCS: 80053; 82607; 82728; 82746; 84425; 84443

== ENCOUNTER 2024-01-24 15:10 | Outpatient (CLI) | payer MEDICARE, SELFPAY ==
--- NOTE | 2024-01-24 15:30 | PE_ITS ---
[facility] [address] [facility] [address] Phone:?[phone] Fax:?[phone] Referring Physician Information: Ken Roajs [address] [facility] [address] Phone:?[phone] Fax:?[phone] Patient:Haris Rasheed D.O.B:?1940 Sex:?Female Phone:?[phone] [facility] MRN:?[id number] Exam Date:?01/24/2024 EXAM: PET/CT WHOLE BODY, CANCER RESTAGING CLINICAL INFORMATION: Multiple myeloma. TECHNICAL INFORMATION: Helical acquisition of data was obtained from the vertex to the toes with reconstruction of 3.75 mm thick images at 3.[address] data was used for attenuation correction. PET scanning was performed through the same anatomic range 60 minutes following administration of 12.06 mCi of 18-FDG delivered intravenously. The patient's glucose at the time of the injection was 159 mg/dL. PET, CT and PET/CT fusion images are interpreted using a computer viewing workstation. PET, CT and PET/CT fusion images were archived and saved in the patient's permanent medical record. COMPARISON: PET-CT from 07/13/2022. INTERPRETATION: Head and Neck: There are no abnormal hypermetabolic foci within the head or neck. There is physiologic uptake in the intracranial soft tissues. Chest: There are no abnormal hypermetabolic foci within the chest. Background mediastinal blood pool uptake has a maximum SUV of 2.65. No lung nodules or masses detected on this free-breathing exam. No lymphadenopathy detected. Abdomen and Pelvis: There are no abnormal hypermetabolic foci within the abdomen or pelvis. Background hepatic parenchymal uptake has a maximum SUV of 2.91. There is physiologic excretion of radiotracer in the urine and bowel. Skeleton, Musculature, and Integument: No abnormal hypermetabolic foci within the skeleton. No lito osteoblastic or osteolytic disease. CONCLUSION: Stable exam. No abnormal FDG uptake to indicate metabolically active myeloma. Electronically signed on 02/01/2024 10:06:00 AM by Damien Herrera M.D.
== END 2024-01-24 15:11 | disposition home or self-care (01) ==
PROVIDERS: PCP Physician Assistant Medical; Visit Provider Physician Assistant Medical
DX: C90.00 Multiple myeloma not having achieved remission (principal); R63.4 Abnormal weight loss; D64.9 Anemia, unspecified
CPT/HCPCS: 78816; A9552

== ENCOUNTER 2024-03-18 08:42 | Outpatient (CLI) | payer MEDICARE, SELFPAY | END 2024-03-18 08:43 | disposition home or self-care (01) | LOC: NFLDREF 03-22 01:38 | PROVIDERS: PCP Physician Assistant Medical; Referring Provider Physician Assistant Medical; Visit Provider Internal Medicine Hematology & Oncology | DX: E78.00 Pure hypercholesterolemia, unspecified (principal); C90.00 Multiple myeloma not having achieved remission; D47.2 Monoclonal gammopathy | CPT/HCPCS: 80053; 80061; 82784; 83520; 83615; 84155; 84165; 86334 ==

== ENCOUNTER 2024-03-31 11:30 | Outpatient (RCR) | payer MEDICARE, SELFPAY ==
[2024-03-21 09:48] LABS: Hematocrit 35.1 % (33.0-51.0); Hemoglobin* 11.3 gm/dL (12.0-16.0); Immature Granulocytes Pct Auto 15.1 %; Immature Reticulocyte Fraction 7.1 % (3.0-15.9); Mean Corpuscular HGB Conc 32 gm/dL (32-36); Mean Corpuscular Hemoglobin 32 pg (26-34); Mean Corpuscular Volume 100 fL (80-100); RDW Coefficient of Variation % 13.4 % (11.5-15.5); Red Blood Count 3.51 m/uL (4.00-5.20); Reticulocyte Hemoglobin Equivi 32.6 pg (29.0-35.0); Reticulocytes Absolute 0.03 # (0.03-0.08); White Blood Count* 3.25 K/uL (4.50-11.00)
[2024-03-21 10:09] LABS: Immature Granulocytes Abs Auto 0.50 K/uL (0.00-0.30); Lymphocytes Absolute Auto 1.00 K/uL (0.90-2.90); Slide Review Reflex No
== END 2024-09-17 23:59 | disposition home or self-care (01) ==
LOC: CCIC 11:30
PROVIDERS: PCP Physician Assistant Medical; Referring Provider Physician Assistant Medical; Visit Provider Internal Medicine Hematology & Oncology
DX: C90.00 Multiple myeloma not having achieved remission (principal); D47.2 Monoclonal gammopathy; Z86.79 Personal history of other diseases of the circulatory system; D70.8 Other neutropenia; R23.1 Pallor
CPT/HCPCS: 36415; 85025; 85045; 88184; 88185; 99214; G0463

== ENCOUNTER 2024-11-10 15:21 | Outpatient (CLI) | payer MEDICARE, SELFPAY | END 2024-11-10 15:22 | disposition home or self-care (01) | PROVIDERS: PCP Physician Assistant Medical; Visit Provider Physician Assistant Medical | DX: D64.9 Anemia, unspecified (principal); I10 Essential (primary) hypertension; R73.03 Prediabetes; Z00.00 Encounter for general adult medical examination without abnormal findings | CPT/HCPCS: 80053; 82607; 82728; 83540; 83550; 84443 ==